=== PATIENT | male | born 1955 | race Caucasian/White ===

== ENCOUNTER 2017-05-07 21:15 | Inpatient (IN) ==
[2017-05-07 21:42] LABS: Basophils # 0.1 K/mcL (0.0-0.2); Eosinophils # 0.4 K/mcL (0.0-0.6); Eosinophils % 3.8 %; Hematocrit 46.8 % (37.5-50.1); Hemoglobin 15.1 g/dL (12.9-16.9); Immature Granulocytes % 0.4 % (0-4); Lymphocytes # 4.2 K/mcL (0.6-4.6); Lymphocytes % 37.3 %; Mean Corpuscular HGB Conc 32.3 g/dL (31.6-35.5); Mean Corpuscular Hemoglobin 26.9 pg (28.0-33.3); Mean Corpuscular Volume 83.3 fL (83.0-100.0); Mean Platelet Volume 10.5 fL (9.4-12.4); Monocytes # 0.8 K/mcL (0.0-1.3); Neutrophils # 5.8 K/mcL (1.6-8.9); Platelet Count 289 K/mcL (140-400); Red Blood Count 5.62 M/mcL (4.19-5.50); Red Cell Distribution Width 14.4 % (11.5-14.5); Segmented Neutrophils % 50.5 %
[2017-05-07 21:45] LABS: Bilirubin,Urine Negative (Negative); Blood,Urine Negative (Negative); Clarity,Urine Clear (Clear); Color,Urine Yellow (Yellow); Glucose,Urine (UA) 500 mg/dL (Normal); Ketones,Urine Negative (Negative); Leukocyte Esterase,Urine Small (Negative); Nitrite,Urine Negative (Negative); PH,Urine 5.5 pH Units (5.0-8.0); Protein,Urine Negative (Neg-Trace); Specific Gravity,Urine 1.024 (1.010-1.025); Urobilinogen,Urine Normal (Normal)
[2017-05-07 21:47] LABS: Bacteria,Urine None Seen per hpf (None-Few); Hyaline Casts,Urine None Seen per lpf (None-Few); RBC,Urine 0-3 per hpf (0-3); Squamous Epithelial Cell,Urine Many per lpf (None-Few); WBC,Urine 15-30 per hpf (0-3)
[2017-05-07 21:55] LABS: Alanine Aminotransferase 21 Units/L (0-55); Albumin 4.1 g/dL (3.5-5.0); Albumin/Globulin Ratio 1.2 (1.1-2.2); Alkaline Phosphatase 79 Units/L (38-126); Aspartate Amino Transferase 12 Units/L (5-34); BUN/Creatinine Ratio 17 (6-26); Bilirubin,Direct 0.1 mg/dL (0.0-0.5); Bilirubin,Indirect 0.2 mg/dL (0.0-1.2); Bilirubin,Total 0.3 mg/dL (0.2-1.2); Blood Urea Nitrogen 21 mg/dL (8-26); Calcium 10.2 mg/dL (8.6-10.8); Carbon Dioxide 21 mEq/L (19-29); Chloride 99 mEq/L (98-109); Globulin 3.3 g/dL (2.4-3.5); Glucose 162 mg/dL (70-99); Lipase 64 Units/L (8-78); Osmolality,Calculated 287 (280-300); Potassium 4.4 mEq/L (3.5-4.5); Sodium 135 mEq/L (136-145); Total Protein 7.4 g/dL (6.0-8.3); eGFR For African Americans > 60 (> 60); eGFR For Non-African Americans 58 (> 60)
[2017-05-07] MEDS ORDERED: 0.9 % Sodium Chloride 1,000 ML IVC ONE (22:17)
[2017-05-07] MEDS ORDERED: *HR* Morphine 2 MG/ML SYRINGE IVP ONE (22:17)
[2017-05-07] MEDS ORDERED: Ondansetron 4 MG/2 ML VIAL IVP ONE (22:17)
--- NOTE | 2017-05-07 22:20 | Emergency Department Note ---
Disposition Clinical Impression: Abdominal pain Disposition: Still a Patient Condition: Good Instructions: Abdominal Pain (ED) Referrals: NO,PCP [Primary Care Provider] - Forms: Work/School Release, ED Satisfaction Letter Abdominal Pain HPI - General Chief Complaint: ED Abdominal Pain Stated Complaint: Left abdominal/side pain Time Seen by Provider: 05/07/17 22:01 Source: patient, family Mode of arrival: ambulatory Limitations: no limitations Nursing Notes Reviewed: Yes Vital Signs Reviewed: Yes - History of Present Illness HPI Narrative: 8-year-old male presents with left upper quadrant abdominal pain. Patient states his symptoms started within the past 2-3 days and has progressively worsened. Patient states he has pain with movement and palpation to the left upper quadrant. He states his bowel movements have been normal and denies hematochezia, melena, or other diarrhea. Denies fever, chills, chest pain, palpitations, diaphoresis. He has some mild shortness of breath with exertion however this is fairly chronic for him, per the patient. Patient denies any history of colitis, diverticulitis or other history of bowel disorder. Pain Scale: 8 - Related Data Allergies Allergy/AdvReac Type Severity Reaction Status Date / Time No Known Allergies Allergy Verified 05/07/17 21:18 All systems ED: reviewed and negative except as stated. Constitutional: Denies: fever, weakness Cardiovascular: Denies: chest pain Respiratory: Reports: dyspnea. Denies: cough, wheezes Gastrointestinal: Reports: abdominal pain, nausea. Denies: vomiting, diarrhea Abdominal Pain PMH - Past Medical History Medical history: Reports: no medical history Male Surgical History: Reports: appendectomy, orthopedic, other Psychiatric history: Reports: anxiety, depression - Social History Smoking status: Current every day smoker Alcohol use: Reports: rarely Drug use: Reports: none Physical Exam General: Alert and in no acute distress Skin: Warm, dry, intact Head: Normocephalic and atraumatic Neck: Supple, trachea midline and no tenderness Cardiovascular: RRR, no murmur, normal perfusion Respiratory: CTAB, no wheezing, cough, or respiratory distress Musculoskeletal: Normal strength, no tenderness, swelling or deformity GI: Soft, mild tenderness to palpation of the left upper quadrant without evidence of rigidity, guarding, or rebound. Neuro: A&O to person, place, time and situation. No focal deficits noted on exam Psychiatric: cooperative and appropriate mood and affect. - General Limitations: no limitations General appearance: alert, in no apparent distress Course Vital Signs Temperature 98.0 F 05/07/17 21:18 Pulse Rate 106 05/07/17 21:18 Respiratory Rate 20 05/07/17 21:18 Blood Pressure 162/82 05/07/17 21:18 O2 Sat by Pulse Oximetry 94 05/07/17 21:18 Temperature 98.0 F 05/07/17 21:18 Pulse Rate 106 05/07/17 21:18 Respiratory Rate 20 05/07/17 21:18 Blood Pressure 162/82 05/07/17 21:18 O2 Sat by Pulse Oximetry 94 05/07/17 21:18 Oxygen Delivery Oxygen Delivery Room Air Abdominal Pain - MDM Narrative Medical decision making narrative: Patient will be signed out to the night physician pending CT of the abdomen for evaluation of possible colitis versus diverticulitis. - Medical Records Medical records reviewed: Yes I reviewed the patient's medical records. - Lab Data Lab results reviewed: Yes I reviewed the patient's lab results. Result diagrams: 05/07/17 21:32 05/07/17 21:32 Lab Results 05/07/17 05/07/17 05/07/17 Range/Units 21:32 21:32 21:32 WBC 11.4 H (4.3-11.1) K/mcL RBC 5.62 H (4.19-5.50) M/mcL Hgb 15.1 (12.9-16.9) g/dL Hct 46.8 (37.5-50.1) % MCV 83.3 (83.0-100.0) fL MCH 26.9 L (28.0-33.3) pg MCHC 32.3 (31.6-35.5) g/dL RDW 14.4 (11.5-14.5) % Plt Count 289 (140-400) K/mcL MPV 10.5 (9.4-12.4) fL Immature Gran % 0.4 (0-4) % Seg Neutrophils % 50.5 % Lymphocytes % 37.3 % Monocytes % 7.0 % Eosinophils % 3.8 % Basophils % 1.0 % Neutrophils # 5.8 (1.6-8.9) K/mcL Lymphocytes # 4.2 (0.6-4.6) K/mcL Monocytes # 0.8 (0.0-1.3) K/mcL Eosinophils # 0.4 (0.0-0.6) K/mcL Basophils # 0.1 (0.0-0.2) K/mcL Sodium 135 L (136-145) mEq/L Potassium 4.4 (3.5-4.5) mEq/L Chloride 99 (98-109) mEq/L Carbon Dioxide 21 (19-29) mEq/L BUN 21 (8-26) mg/dL Creatinine 1.27 H (0.72-1.25) mg/dL Est GFR ( Amer) > 60 (> 60) Est GFR (Non-Af Amer) 58 L (> 60) BUN/Creatinine Ratio 17 (6-26) Glucose 162 H (70-99) mg/dL Calculated Osmolality 287 (280-300) Calcium 10.2 (8.6-10.8) mg/dL Total Bilirubin 0.3 (0.2-1.2) mg/dL Direct Bilirubin 0.1 (0.0-0.5) mg/dL Indirect Bilirubin 0.2 (0.0-1.2) mg/dL AST 12 (5-34) Units/L ALT 21 (0-55) Units/L Alkaline Phosphatase 79 (38-126) Units/L Serum Total Protein 7.4 (6.0-8.3) g/dL Albumin 4.1 (3.5-5.0) g/dL Globulin 3.3 (2.4-3.5) g/dL Albumin/Globulin Ratio 1.2 (1.1-2.2) Lipase 64 (8-78) Units/L Urine Color Yellow (Yellow) Urine Clarity Clear (Clear) Urine pH 5.5 (5.0-8.0) pH Units Ur Specific [place] 1.024 (1.010-1.025) Urine Protein Negative (Neg-Trace) mg/dL Urine Glucose (UA) 500 H (Normal) mg/dL Urine Ketones Negative (Negative) mg/dL Urine Blood Negative (Negative) Urine Nitrite Negative (Negative) Urine Bilirubin Negative (Negative) Urine Urobilinogen Normal (Normal) mg/dL Ur Leukocyte Esterase Small H (Negative) Urine Microscopic RBC 0-3 (0-3) per hpf Urine Microscopic WBC 15-30 H (0-3) per hpf Ur Squamous Epith Cells Many H (None-Few) per lpf Urine Bacteria None Seen (None-Few) per hpf Hyaline Casts None Seen (None-Few) per lpf Ur Culture Indicated? YES A (NO)
[2017-05-08] MEDS ORDERED: Ondansetron 4 MG/2 ML VIAL IVP PRN ×2 (01:09→06:09)
[2017-05-08] MEDS: *HR* HYDROmorphone (PF) 1 MG/ML SYRINGE IVP ONE ×3 (01:18→03:48)
[2017-05-08] MEDS ORDERED: Ondansetron 4 MG/2 ML VIAL IVP ONE (03:31)
[2017-05-08] MEDS ORDERED: *HR* HYDROmorphone 2 MG/ML SYRINGE IVP ONE (03:33)
[2017-05-08] MEDS ORDERED: *HR* HYDROmorphone (PF) 1 MG/ML SYRINGE ONE (03:41)
[2017-05-08] MEDS ORDERED: Ondansetron 4 MG/2 ML VIAL ONE (03:41)
[2017-05-08] MEDS ORDERED: Naloxone 0.4 MG/ML INJ IVP PRN (04:55)
[2017-05-08] MEDS ORDERED: *HR* Morphine 2 MG/ML SYRINGE IVP PRN (04:55)
[2017-05-08] MEDS ORDERED: 0.9 % Sodium Chloride 1,000 ML IVC SCH (05:00)
--- NOTE | 2017-05-08 05:03 | Internal Med History&Physical ---
Date of Encounter: 05/08/17 Time of Encounter: 04:58 Assessment and Plan (1) Abdominal pain Current visit: Yes Status: Acute left sided abdominal pain. no signs of surgical abdomen, CT abd shows mild stranding ?acute pancreatitis however, lipase is normal. will treat conservatively with clear liquid diet, aalgesics and IVF. repeat lipase. CT also shows ?prostatic fluid, unlikley abscess, he denies any fever, burning micturition or difficulty passing urine. Qualifiers: Abdominal location: left upper quadrant Qualified Code(s): R10.12 - Left upper quadrant pain (2) HTN (hypertension) Current visit: Yes Status: Acute continue home meds Qualifiers: Hypertension type: essential hypertension Qualified Code(s): I10 - Essential (primary) hypertension (3) Unilateral AKA Current visit: Yes Status: Acute Qualifiers: Laterality: left Qualified Code(s): Z89.612 - Acquired absence of left leg above knee Internal Medicine - H&P: HPI Chief complaint: left upper abdominal pain' Admitted From: Home Plans for Post Hospital Care: Home History of present illness: Mr. River is a 62 year old male with PMH of HTN, left leg AKA presents with left upper quadrant abdominal pain. Patient states his symptoms started within the past 2-3 days and has progressively worsened. Patient states he has pain with movement and palpation to the left upper quadrant. He states his bowel movements have been normal and denies hematochezia, melena, or other diarrhea. HE Denies fever, chills, chest pain, palpitations, diaphoresis. H Patient denies any history of colitis, diverticulitis or other history of bowel disorder.HE denies any difficulty in passing urine. He is non alcoholic and does not smoke. he denies any intake of NSAIDS. he received morphine and dialudid at ED wi=hich he says has eased his pain. Past Med Surg Social Fam HX - Past Medical History Medical history: no medical history Psychiatric history: anxiety, depression - Social History Smoking Status: Current every day smoker Packs per day: 2 Smokeless Tobacco Status: No Alcohol use: rarely Drug use: none - Family History Son Name: Christian River Age: 29 Family Member Ethnicity: Non- Living Status: Still Living Hx Family Cardiac Disorders: No Hx Family Respiratory Disorders: No Hx Family Cancer: No Hx Family GI Disorders: No Hx Family Genitourinary Disorders: No Hx Family Endocrine Disorder: No Hx Family Musculoskeletal Disorders: No Hx Family Neuromuscular Disorders: No Hx Family Neurologic Disorders: No Hx Family HEENT Disorders: No Hx Family Autoimmune Disorders: No Hx Family Reproductive Disorders: No Hx Family Psychosocial Disorders: No Hx Family Medical Disorders: No Internal Medicine - H&P: Meds Allergies No Known Allergies Allergy (Verified 05/07/17 21:18) All Systems PM: A 10-system review of systems was performed and is negative for pertinent findings except as documented above in the HPI. - Constitutional Constitutional: as per HPI - Breasts Breasts: as per HPI - Cardiovascular Cardiovascular ROS IM: as per HPI - Respiratory Respiratory: as per HPI - Gastrointestinal Gastrointestinal: as per HPI - Genitourinary Genitourinary ROS male: as per HPI - Musculoskeletal Musculoskeletal ROS IM: as per HPI - Constitutional Vitals: Temp Pulse Resp BP Pulse Ox 97.7 F 79 12 119/67 94 05/08/17 04:27 05/08/17 04:27 05/08/17 04:27 05/08/17 04:27 05/08/17 04:31 General appearance: Present: A&O X 3, no acute distress Exam: neck- supple chest- b/l clear, no added sounds cvs-s1 and s2, no mr//g abd-soft, mild tenderess of the left quad and epigastriu, bs are present ext- no edema on the right leg, left leg AKA. neuro- no focal defecits Internal Med - H&P Results - Labs CBC & Chem 7: 05/07/17 21:32 05/07/17 21:32 - Attending Attestation I examined this patient and my medical decision-making was reviewed with the Resident Physician. I agree with the documented findings, disposition and treatment plan as described.
[2017-05-08] MEDS ORDERED: *HR* HYDROmorphone (PF) 1 MG/ML SYRINGE IVP ONE (06:09)
--- NOTE | 2017-05-08 08:40 | Emergency Department Note ---
Disposition Clinical Impression: Abdominal pain Qualifiers: Abdominal location: left upper quadrant Qualified Code(s): R10.12 - Left upper quadrant pain Pancreatitis Qualifiers: Chronicity: acute Pancreatitis type: unspecified pancreatitis type Acute pancreatitis complication: no infection or necrosis Qualified Code(s): K85.90 - Acute pancreatitis without necrosis or infection, unspecified Disposition: Admitted As Inpatient Condition: Fair Abdominal Pain HPI - General Chief Complaint: ED Abdominal Pain Stated Complaint: Left abdominal/side pain Time Seen by Provider: 05/07/17 22:01 Source: patient, family Mode of arrival: ambulatory Nursing Notes Reviewed: Yes Vital Signs Reviewed: Yes - History of Present Illness Pain Scale: 8 - Related Data Home Medications Medication Instructions Recorded Confirmed Gabapentin [Neurontin] 300 mg PO TID 05/08/17 05/08/17 HydrOXYzine Pamoate [Vistaril] 50 mg PO HS PRN 05/08/17 05/08/17 Meloxicam [Mobic] 15 mg PO DAILY 05/08/17 05/08/17 Oxycodone HCl/Acetaminophen 1 tab PO Q8H PRN 05/08/17 05/08/17 [Percocet 7.5-325 mg Tablet] Sertraline [Zoloft] 200 mg PO DAILY 05/08/17 05/08/17 Tizanidine HCl 4 mg PO BID PRN 05/08/17 05/08/17 Allergies Allergy/AdvReac Type Severity Reaction Status Date / Time No Known Allergies Allergy Verified 05/08/17 10:52 Constitutional: Denies: fever, weakness Cardiovascular: Denies: chest pain Respiratory: Reports: dyspnea. Denies: cough, wheezes Gastrointestinal: Reports: abdominal pain, nausea. Denies: vomiting, diarrhea Abdominal Pain PMH - Past Medical History Medical history: Reports: no medical history Male Surgical History: Reports: appendectomy, orthopedic, other Psychiatric history: Reports: anxiety, depression - Social History Smoking status: Current every day smoker Alcohol use: Reports: rarely Drug use: Reports: none Physical Exam - General Limitations: no limitations General appearance: alert, in no apparent distress Course Course Narrative: This patient was signed out to me at shift change from Dr. Prince. He presented with some left upper quadrant and left flank pain for 3 days. He has had some nausea and vomiting. No diarrhea. No melena, hematemesis, or hematochezia. No fever. No urinary symptoms. At shift change patient is awaiting a CT scan of the abdomen and pelvis. CT returned and showed a fluid collection within the prostate, cannot rule out abscess. Patient has no lower abdominal pain or rectal pain or urinary symptoms. The CT also showed some. Pancreatic fat stranding consistent with mild pancreatitis. The hospitalist, Dr. Hurd, was consulted and accepted admission of the patient for pancreatitis. Vital Signs Temperature 98.0 F 05/07/17 21:18 Pulse Rate 106 05/07/17 21:18 Respiratory Rate 20 05/07/17 21:18 Blood Pressure 162/82 05/07/17 21:18 O2 Sat by Pulse Oximetry 94 05/07/17 21:18 Temperature 98.1 F 05/08/17 19:06 Pulse Rate 77 05/08/17 19:06 Respiratory Rate 17 05/08/17 19:06 Blood Pressure 98/63 05/08/17 19:06 O2 Sat by Pulse Oximetry 92 05/08/17 19:06 Oxygen Delivery Oxygen Delivery Nasal Cannula Abdominal Pain - Medical Records Medical records reviewed: Yes I reviewed the patient's medical records. - Lab Data Lab results reviewed: Yes I reviewed the patient's lab results. Result diagrams: 05/07/17 21:32 05/07/17 21:32 Lab Results 05/07/17 05/07/17 05/07/17 Range/Units 21:32 21:32 21:32 WBC 11.4 H (4.3-11.1) K/mcL RBC 5.62 H (4.19-5.50) M/mcL Hgb 15.1 (12.9-16.9) g/dL Hct 46.8 (37.5-50.1) % MCV 83.3 (83.0-100.0) fL MCH 26.9 L (28.0-33.3) pg MCHC 32.3 (31.6-35.5) g/dL RDW 14.4 (11.5-14.5) % Plt Count 289 (140-400) K/mcL MPV 10.5 (9.4-12.4) fL Immature Gran % 0.4 (0-4) % Seg Neutrophils % 50.5 % Lymphocytes % 37.3 % Monocytes % 7.0 % Eosinophils % 3.8 % Basophils % 1.0 % Neutrophils # 5.8 (1.6-8.9) K/mcL Lymphocytes # 4.2 (0.6-4.6) K/mcL Monocytes # 0.8 (0.0-1.3) K/mcL Eosinophils # 0.4 (0.0-0.6) K/mcL Basophils # 0.1 (0.0-0.2) K/mcL Sodium 135 L (136-145) mEq/L Potassium 4.4 (3.5-4.5) mEq/L Chloride 99 (98-109) mEq/L Carbon Dioxide 21 (19-29) mEq/L BUN 21 (8-26) mg/dL Creatinine 1.27 H (0.72-1.25) mg/dL Est GFR ( Amer) > 60 (> 60) Est GFR (Non-Af Amer) 58 L (> 60) BUN/Creatinine Ratio 17 (6-26) Glucose 162 H (70-99) mg/dL Calculated Osmolality 287 (280-300) Calcium 10.2 (8.6-10.8) mg/dL Total Bilirubin 0.3 (0.2-1.2) mg/dL Direct Bilirubin 0.1 (0.0-0.5) mg/dL Indirect Bilirubin 0.2 (0.0-1.2) mg/dL AST 12 (5-34) Units/L ALT 21 (0-55) Units/L Alkaline Phosphatase 79 (38-126) Units/L Troponin I (0-0.03) ng/mL Serum Total Protein 7.4 (6.0-8.3) g/dL Albumin 4.1 (3.5-5.0) g/dL Globulin 3.3 (2.4-3.5) g/dL Albumin/Globulin Ratio 1.2 (1.1-2.2) Lipase 64 (8-78) Units/L Urine Color Yellow (Yellow) Urine Clarity Clear (Clear) Urine pH 5.5 (5.0-8.0) pH Units Ur Specific [place] 1.024 (1.010-1.025) Urine Protein Negative (Neg-Trace) mg/dL Urine Glucose (UA) 500 H (Normal) mg/dL Urine Ketones Negative (Negative) mg/dL Urine Blood Negative (Negative) Urine Nitrite Negative (Negative) Urine Bilirubin Negative (Negative) Urine Urobilinogen Normal (Normal) mg/dL Ur Leukocyte Esterase Small H (Negative) Urine Microscopic RBC 0-3 (0-3) per hpf Urine Microscopic WBC 15-30 H (0-3) per hpf Ur Squamous Epith Cells Many H (None-Few) per lpf Urine Bacteria None Seen (None-Few) per hpf Hyaline Casts None Seen (None-Few) per lpf Ur Culture Indicated? YES A (NO) 05/07/17 Range/Units 23:13 WBC (4.3-11.1) K/mcL RBC (4.19-5.50) M/mcL Hgb (12.9-16.9) g/dL Hct (37.5-50.1) % MCV (83.0-100.0) fL MCH (28.0-33.3) pg MCHC (31.6-35.5) g/dL RDW (11.5-14.5) % Plt Count (140-400) K/mcL MPV (9.4-12.4) fL Immature Gran % (0-4) % Seg Neutrophils % % Lymphocytes % % Monocytes % % Eosinophils % % Basophils % % Neutrophils # (1.6-8.9) K/mcL Lymphocytes # (0.6-4.6) K/mcL Monocytes # (0.0-1.3) K/mcL Eosinophils # (0.0-0.6) K/mcL Basophils # (0.0-0.2) K/mcL Sodium (136-145) mEq/L Potassium (3.5-4.5) mEq/L Chloride (98-109) mEq/L Carbon Dioxide (19-29) mEq/L BUN (8-26) mg/dL Creatinine (0.72-1.25) mg/dL Est GFR ( Amer) (> 60) Est GFR (Non-Af Amer) (> 60) BUN/Creatinine Ratio (6-26) Glucose (70-99) mg/dL Calculated Osmolality (280-300) Calcium (8.6-10.8) mg/dL Total Bilirubin (0.2-1.2) mg/dL Direct Bilirubin (0.0-0.5) mg/dL Indirect Bilirubin (0.0-1.2) mg/dL AST (5-34) Units/L ALT (0-55) Units/L Alkaline Phosphatase (38-126) Units/L Troponin I 0.01 (0-0.03) ng/mL Serum Total Protein (6.0-8.3) g/dL Albumin (3.5-5.0) g/dL Globulin (2.4-3.5) g/dL Albumin/Globulin Ratio (1.1-2.2) Lipase (8-78) Units/L Urine Color (Yellow) Urine Clarity (Clear) Urine pH (5.0-8.0) pH Units Ur Specific [place] (1.010-1.025) Urine Protein (Neg-Trace) mg/dL Urine Glucose (UA) (Normal) mg/dL Urine Ketones (Negative) mg/dL Urine Blood (Negative) Urine Nitrite (Negative) Urine Bilirubin (Negative) Urine Urobilinogen (Normal) mg/dL Ur Leukocyte Esterase (Negative) Urine Microscopic RBC (0-3) per hpf Urine Microscopic WBC (0-3) per hpf Ur Squamous Epith Cells (None-Few) per lpf Urine Bacteria (None-Few) per hpf Hyaline Casts (None-Few) per lpf Ur Culture Indicated? (NO) - Radiology Data Radiology results reviewed: Yes I reviewed the patient's radiology results. Abdomen/Pelvis CT 05/07/17 22:16 IMPRESSION: 1. Curvilinear fluid attenuation area in the prostate suspicious for fluid collection. Abscess not excluded. 2. Slight haziness of the peripancreatic fat. Question mild pancreatitis. D/ / 05/07/2017 23:23:54 Delio Rubio MD / [facility] Interpreting Provider: Delio Rubio MD Chest X-Ray 05/07/17 22:16 IMPRESSION: Negative portable chest. D/ / Jorge A Miranda MD / Jorge A Miranda MD Interpreting Provider: Jorge A Miranda MD
--- NOTE | 2017-05-08 10:50 | Internal Med Progress Note ---
Date of Encounter: 05/08/17 Time of Encounter: 10:47 - Assessment and plan (1) Acute pancreatitis Current Visit: Yes Status: Acute Assessment and plan: Continue clear liquids Morphine as needed, IV fluids Order abdominal ultrasound, the patient does not drink alcohol Order lipid panel Qualifiers: Pancreatitis type: idiopathic Acute pancreatitis complication: no infection or necrosis Qualified Code(s): K85.00 - Idiopathic acute pancreatitis without necrosis or infection (2) Chronic pain Current Visit: Yes Status: Acute Assessment and plan: Continue gabapentin Qualifiers: Chronic pain type: chronic pain syndrome Qualified Code(s): G89.4 - Chronic pain syndrome (3) Prostate abscess Current Visit: Yes Status: Acute Assessment and plan: CT scan of the abdomen shows curvilinear fluid attenuation area on the prostate suspicious for fluid collection, abscess is not excluded although the patient is asymptomatic. There is a slight haziness in the peripancreatic fat question mild pancreatitis Consider antibiotics and urology consult if he becomes symptomatic (4) Abdominal pain Current Visit: Yes Status: Acute Qualifiers: Abdominal location: left upper quadrant Qualified Code(s): R10.12 - Left upper quadrant pain (5) HTN (hypertension) Current Visit: Yes Status: Acute Assessment and plan: Stable Qualifiers: Hypertension type: essential hypertension Qualified Code(s): I10 - Essential (primary) hypertension (6) Unilateral AKA Current Visit: Yes Status: Acute Qualifiers: Laterality: left Qualified Code(s): Z89.612 - Acquired absence of left leg above knee - Subjective Interval history: Complaining of left upper quadrant pain, mild nausea, no diarrhea, no fevers. No chest pain or shortness of breath. No headaches - Constitutional Vitals: Temp Pulse Resp BP Pulse Ox 97.7 F 77 14 119/67 94 05/08/17 05:28 05/08/17 05:28 05/08/17 05:28 05/08/17 05:28 05/08/17 05:28 General appearance: Present: A&O X 3, morbidly obese, no acute distress - Head Head exam: Present: atraumatic, normocephalic - Eye Eye exam: Present: PERRL, conjuntiva pink, sclera anicteric Pupils: Present: PERRL - Neck Neck exam general surgery: Present: supple, trachea midline. Absent: lymphadenopathy - Respiratory Respiratory exam: Present: decreased breath sounds, CTAB. Absent: accessory muscle use, rales, rhonchi, wheezes - Cardiovascular Cardiovascular exam: Present: RRR, +S1, +S2. Absent: diastolic murmur, gallop, rubs, systolic murmur - GI/Abdominal GI/Abdominal exam: Present: distended, normal bowel sounds, soft, tenderness ( Epigastric and left upper quadrant tenderness), no peritoneal signs - Extremities Exam Extremities exam: Present: warm, radial pulses palpable and symetrical. Absent : calf tenderness, cyanotic, pedal edema - Neurological Exam Neurological exam: Present: CN II-XII intact, oriented X3, no focal deficits. Absent: pronater drift, facial droop, speech deficit Additional comments: Left [id number] amputation - Skin Skin exam: Present: dry, intact Internal Medicine: Result - Labs CBC & Chem 7: 05/07/17 21:32 05/07/17 21:32 Consult Discharge Plan - Plan Referrals: NO,PCP [Primary Care Provider] -
[2017-05-08] MEDS: *HR* Morphine 2 MG/ML SYRINGE IVP PRN ×4 (10:52→21:59)
[2017-05-08] MEDS: 0.9 % Sodium Chloride 1,000 ML IVC SCH ×2 (13:15→20:00)
[2017-05-08] MEDS: Nicotine 21 MG PATCH.TD24 TD SCH (16:40)
[2017-05-08] MEDS: Ondansetron 4 MG/2 ML VIAL IVP PRN (16:41)
[2017-05-08] MEDS: Gabapentin 300 MG CAPSULE PO SCH (19:58)
[2017-05-08] MEDS: hydrOXYzine pamoate 25 MG CAPSULE PO SCH (19:59)
[2017-05-09] MEDS: *HR* Morphine 2 MG/ML SYRINGE IVP PRN ×2 (02:06→06:39)
[2017-05-09] MEDS: 0.9 % Sodium Chloride 1,000 ML IVC SCH ×3 (02:53→18:04)
[2017-05-09 04:31] LABS: Basophils # 0.1 K/mcL (0.0-0.2); Eosinophils # 0.3 K/mcL (0.0-0.6); Eosinophils % 5.1 %; Hematocrit 40.8 % (37.5-50.1); Immature Granulocytes % 0.5 % (0-4); Lymphocytes # 2.4 K/mcL (0.6-4.6); Mean Corpuscular HGB Conc 31.1 g/dL (31.6-35.5); Mean Corpuscular Hemoglobin 26.6 pg (28.0-33.3); Mean Corpuscular Volume 85.4 fL (83.0-100.0); Mean Platelet Volume 10.4 fL (9.4-12.4); Monocytes # 0.3 K/mcL (0.0-1.3); Monocytes % 5.6 %; Neutrophils # 2.9 K/mcL (1.6-8.9); Platelet Count 184 K/mcL (140-400); Red Blood Count 4.78 M/mcL (4.19-5.50); Red Cell Distribution Width 14.4 % (11.5-14.5); Segmented Neutrophils % 47.8 %
[2017-05-09 04:36] LABS: Hemoglobin 12.7 g/dL (12.9-16.9)
[2017-05-09 04:45] LABS: BUN/Creatinine Ratio 13 (6-26); Blood Urea Nitrogen 12 mg/dL (8-26); Carbon Dioxide 26 mEq/L (19-29); Chloride 107 mEq/L (98-109); Cholesterol 216 mg/dL (< 200); Glucose 147 mg/dL (70-99); HDL Cholesterol 27 mg/dL (40-59); LDL Cholesterol,Calculated 134 mg/dL (0-99); Osmolality,Calculated 290 (280-300); Potassium 4.5 mEq/L (3.5-4.5); Sodium 139 mEq/L (136-145); Triglycerides 276 mg/dL (< 150); eGFR For African Americans > 60 (> 60); eGFR For Non-African Americans > 60 (> 60)
[2017-05-09 04:48] LABS: Calcium 8.6 mg/dL (8.6-10.8)
[2017-05-09] MEDS: Nicotine 21 MG PATCH.TD24 TD SCH (08:51)
[2017-05-09] MEDS ORDERED: *HR* HYDROmorphone (PF) 1 MG/ML SYRINGE IVP PRN (10:12)
--- NOTE | 2017-05-09 10:17 | Internal Med Progress Note ---
Date of Encounter: 05/09/17 Time of Encounter: 10:17 - Assessment and plan (1) Acute pancreatitis Current Visit: Yes Status: Acute Assessment and plan: Advanced to full liquids Dilaudid as needed, IV fluids Abdominal ultrasound report pending, the patient does not drink alcohol Lipase was 169 Qualifiers: Pancreatitis type: idiopathic Acute pancreatitis complication: no infection or necrosis Qualified Code(s): K85.00 - Idiopathic acute pancreatitis without necrosis or infection (2) Acute renal failure Current Visit: Yes Status: Acute Assessment and plan: Secondary to dehydration Creatinine has improved from 1.27 down to 0.96 Continue IV fluids Qualifiers: Acute renal failure type: unspecified Qualified Code(s): N17.9 - Acute kidney failure, unspecified (3) Chronic pain Current Visit: Yes Status: Acute Assessment and plan: Continue gabapentin Qualifiers: Chronic pain type: chronic pain syndrome Qualified Code(s): G89.4 - Chronic pain syndrome (4) Prostate abscess Current Visit: Yes Status: Acute Assessment and plan: CT scan of the abdomen shows curvilinear fluid attenuation area on the prostate suspicious for fluid collection, abscess is not excluded although the patient is asymptomatic. There is a slight haziness in the peripancreatic fat question mild pancreatitis Consider antibiotics and urology consult if he becomes symptomatic (5) Abdominal pain Current Visit: Yes Status: Acute Qualifiers: Abdominal location: left upper quadrant Qualified Code(s): R10.12 - Left upper quadrant pain (6) HTN (hypertension) Current Visit: Yes Status: Acute Assessment and plan: Stable Qualifiers: Hypertension type: essential hypertension Qualified Code(s): I10 - Essential (primary) hypertension (7) Unilateral AKA Current Visit: Yes Status: Acute Qualifiers: Laterality: left Qualified Code(s): Z89.612 - Acquired absence of left leg above knee - Subjective Interval history: Complaining of left upper quadrant and epigastric pain 9 out of 10 in intensity , mild nausea, no diarrhea, no fevers. No chest pain or shortness of breath. No headaches - Constitutional Vitals: Temp Pulse Resp BP Pulse Ox 98.2 F 68 17 113/73 95 05/09/17 06:54 05/09/17 06:54 05/09/17 06:54 05/09/17 06:54 05/09/17 08:21 General appearance: Present: A&O X 3, morbidly obese, no acute distress - Head Head exam: Present: atraumatic, normocephalic - Eye Eye exam: Present: PERRL, conjuntiva pink, sclera anicteric Pupils: Present: PERRL - Neck Neck exam general surgery: Present: supple, trachea midline. Absent: lymphadenopathy - Respiratory Respiratory exam: Present: CTAB. Absent: accessory muscle use, rales, rhonchi, wheezes - Cardiovascular Cardiovascular exam: Present: RRR, +S1, +S2. Absent: diastolic murmur, gallop, rubs, systolic murmur - GI/Abdominal GI/Abdominal exam: Present: normal bowel sounds, soft, tenderness (Epigastric and left upper quadrant tenderness), no peritoneal signs - Extremities Exam Extremities exam: Present: warm, radial pulses palpable and symetrical. Absent : calf tenderness, cyanotic, pedal edema Additional comments: Left [id number]-[id number]-ozft amputation - Neurological Exam Neurological exam: Present: CN II-XII intact, oriented X3, no focal deficits. Absent: pronater drift, facial droop, speech deficit - Skin Skin exam: Present: dry, intact Internal Medicine: Result - Labs CBC & Chem 7: 05/09/17 03:51 05/09/17 03:51 Labs: Short CBC 05/09/17 Range/Units 03:51 WBC 6.1 (4.3-11.1) K/mcL Hgb 12.7 L D (12.9-16.9) g/dL Hct 40.8 (37.5-50.1) % Plt Count 184 (140-400) K/mcL Neutrophils # 2.9 (1.6-8.9) K/mcL BMP 05/09/17 03:51 Sodium 139 Potassium 4.5 Chloride 107 Carbon Dioxide 26 BUN 12 Creatinine 0.96 Glucose 147 H Calcium 8.6 D - Impressions Impressions Abdomen Ultrasound 05/09/17 09:00 IMPRESSION: Cholelithiasis without evidence of acute cholecystitis. Incidentally noted left renal cyst. D/ / Jose Rojas MD / Jose Rojas MD Interpreting Provider: Jose Rojas MD Consult Discharge Plan - Plan Referrals: NO,PCP [Primary Care Provider] -
[2017-05-09] MEDS: Gabapentin 300 MG CAPSULE PO SCH ×2 (10:20→20:35)
[2017-05-09] MEDS: *HR* HYDROmorphone (PF) 1 MG/ML SYRINGE IVP PRN ×5 (10:53→20:36)
--- NOTE | 2017-05-09 12:08 | Electrocardiograph Report ---
[address] [place] [address] Test Date: 2017-05-07 Pat Name: Derick River Department: 103 Room: 3A33 Gender: M Desilverizer: MEG : 1955 Requested By: Lalo Prince Order Number: [id number] Reading MD: Terry Cowart MD Measurements Intervals Adrian Rate: 89 P: 43 VA: 198 QRS: -49 QRSD: 113 T: 70 QT: 376 QTc: 423 Interpretive Statements SINUS RHYTHM LEFT ANTERIOR FASCICULAR BLOCK PROBABLE LATERAL MYOCARDIAL INFARCTION, OF INDETERMINATE AGE Electronically Signed On 05-09-2017 12:07:12 EDT by Terry Cowart MD
[2017-05-09] MEDS: *HR* Heparin 5,000 UNIT/ML VIAL SQ SCH (18:04)
[2017-05-09] MEDS: hydrOXYzine pamoate 25 MG CAPSULE PO SCH (20:35)
[2017-05-09] MEDS: *HR* OxyCODONE/APAP 5/325 TABLET PO PRN (23:23)
[2017-05-10] MEDS: 0.9 % Sodium Chloride 1,000 ML IVC SCH ×5 (00:34→23:08)
[2017-05-10] MEDS: *HR* HYDROmorphone (PF) 1 MG/ML SYRINGE IVP PRN ×9 (02:56→23:07)
[2017-05-10] MEDS: *HR* Heparin 5,000 UNIT/ML VIAL SQ SCH ×2 (05:54→17:10)
[2017-05-10] MEDS: Gabapentin 300 MG CAPSULE PO SCH ×2 (08:10→19:52)
[2017-05-10] MEDS: Nicotine 21 MG PATCH.TD24 TD SCH (08:10)
--- NOTE | 2017-05-10 09:05 | Internal Med Progress Note ---
Date of Encounter: 05/10/17 Time of Encounter: 09:03 - Assessment and plan (1) Acute pancreatitis Current Visit: Yes Status: Acute Assessment and plan: Dilaudid as needed, IV fluids Abdominal ultrasound showed cholelithiasis without cholecystitis and an incidental left renal cyst. The patient requested to be seen by the surgical service to consider a cholecystectomy during this hospitalization the patient does not drink alcohol Lipase was 169 May advance diet if surgery scheduled for today Qualifiers: Pancreatitis type: idiopathic Acute pancreatitis complication: no infection or necrosis Qualified Code(s): K85.00 - Idiopathic acute pancreatitis without necrosis or infection (2) Acute renal failure Current Visit: Yes Status: Acute Assessment and plan: Secondary to dehydration Creatinine has improved from 1.27 down to 0.96 Continue IV fluids Qualifiers: Acute renal failure type: unspecified Qualified Code(s): N17.9 - Acute kidney failure, unspecified (3) Chronic pain Current Visit: Yes Status: Acute Assessment and plan: Continue gabapentin Qualifiers: Chronic pain type: chronic pain syndrome Qualified Code(s): G89.4 - Chronic pain syndrome (4) Prostate abscess Current Visit: Yes Status: Acute Assessment and plan: CT scan of the abdomen shows curvilinear fluid attenuation area on the prostate suspicious for fluid collection, abscess is not excluded although the patient is asymptomatic. There is a slight haziness in the peripancreatic fat question mild pancreatitis Consider antibiotics and urology consult if he becomes symptomatic (5) Abdominal pain Current Visit: Yes Status: Acute Qualifiers: Abdominal location: left upper quadrant Qualified Code(s): R10.12 - Left upper quadrant pain (6) HTN (hypertension) Current Visit: Yes Status: Acute Assessment and plan: Stable Qualifiers: Hypertension type: essential hypertension Qualified Code(s): I10 - Essential (primary) hypertension (7) Unilateral AKA Current Visit: Yes Status: Acute Qualifiers: Laterality: left Qualified Code(s): Z89.612 - Acquired absence of left leg above knee - Subjective Interval history: Still complaining of left upper quadrant and epigastric pain 7 out of 10 in intensity, mild nausea, no diarrhea, no fevers. No chest pain or shortness of breath. No headaches - Constitutional Vitals: Temp Pulse Resp BP Pulse Ox 97.7 F 73 18 125/70 92 05/10/17 07:52 05/10/17 07:52 05/10/17 07:52 07/11/17 07:52 05/10/17 07:52 General appearance: Present: A&O X 3, morbidly obese, no acute distress Exam: - Head Head exam: Present: atraumatic, normocephalic - Eye Eye exam: Present: PERRL, conjuntiva pink, sclera anicteric Pupils: Present: PERRL - Neck Neck exam general surgery: Present: supple, trachea midline. Absent: lymphadenopathy - Respiratory Respiratory exam: Present: CTAB. Absent: accessory muscle use, rales, rhonchi, wheezes - Cardiovascular Cardiovascular exam: Present: RRR, +S1, +S2. Absent: diastolic murmur, gallop, rubs, systolic murmur - GI/Abdominal GI/Abdominal exam: Present: normal bowel sounds, soft, tenderness (Epigastric and left upper quadrant tenderness), no peritoneal signs - Extremities Exam Extremities exam: Present: warm, radial pulses palpable and symetrical. Absent : calf tenderness, cyanotic, pedal edema Additional comments: Left hxxex-yje-dufr amputation - Neurological Exam Neurological exam: Present: CN II-XII intact, oriented X3, no focal deficits. Absent: pronater drift, facial droop, speech deficit - Skin Skin exam: Present: dry, intact Internal Medicine: Result - Labs CBC & Chem 7: 05/09/17 03:51 05/09/17 03:51 Consult Discharge Plan - Plan Referrals: Lalo Moss MD [Non-Partnered Physician] - 05/16/17 3:00 pm
--- NOTE | 2017-05-10 17:08 | General Surgery Consult Note ---
<Jackie Morris Sundeep - Last Filed: 05/10/17 17:04> Date of Encounter: 05/10/17 Time of Encounter: 16:45 Assessment and Plan (1) Gallstone pancreatitis Current Visit: Yes Status: Acute May have a low-fat diet today Nothing by mouth after midnight IV fluids Supportive care and pain control Risks, benefits, alternatives, expected outcomes were reviewed with the patient needs in agreement to proceed to the operating room with Dr. De La Paz for a laparoscopic cholecystectomy with possible cholangiogram and possible open procedure Repeat a.m. labs Incentive spirometer every 1 hour while awake (2) Obesity (BMI 30-39.9) Current Visit: Yes Status: Chronic (3) Tobacco abuse Current Visit: Yes Status: Acute Smoking cessation education Nicotine patch daily DuoNeb every 6 hours scheduled (4) DVT prophylaxis Current Visit: Yes Status: Acute Heparin 5000 units subcutaneous twice daily for DVT prophylaxis History of Present Illness Consult date: 05/10/17 Reason for consult: other (Gallstone pancreatitis) Requesting physician: Edilson Romero History of present illness: Mr. River is a 62 year old male who was admitted to the hospital with complaints of abdominal pain with associated nausea and vomiting. The patient reports a 6 day history of generalized abdominal pain. He states that the pain is now mostly located in his upper abdomen and left upper quadrant. He does have radiating pain into his back bilaterally. He has never experienced pain like this in the past. He states that the pain is constant. Denies any alleviating or aggravating factors. He does admit to nausea and vomiting which has improved with supportive measures. He does report increase in heartburn symptoms. Denies any changes in bowel habits. Denies any difficulty with urination. Denies any shortness of breath or chest pains. We have been asked to see and evaluate the patient for treatment and recommendations for his gallstone pancreatitis. Past Med Surg Social Fam HX - Past Medical History Source: patient, old records reviewed Medical history: no medical history, other (Obesity) Psychiatric history: anxiety, depression - Past Surgical History Surgical History: appendectomy, orthopedic, other (multiple surgeries to LLE for infected hardware of knee; Left AKA) - Social History Smoking Status: Current every day smoker Packs per day: 2 Smokeless Tobacco Status: No Alcohol use: rarely Drug use: none Occupational status: disabled Current living situation: Home, With Family Activity Level: Uses cane/walker - Family History Son Name: Christian River Age: 29 Family Member Ethnicity: Non- Living Status: Still Living Hx Family Cardiac Disorders: No Hx Family Respiratory Disorders: No Hx Family Cancer: No Hx Family GI Disorders: No Hx Family Genitourinary Disorders: No Hx Family Endocrine Disorder: No Hx Family Musculoskeletal Disorders: No Hx Family Neuromuscular Disorders: No Hx Family Neurologic Disorders: No Hx Family HEENT Disorders: No Hx Family Autoimmune Disorders: No Hx Family Reproductive Disorders: No Hx Family Psychosocial Disorders: No Hx Family Medical Disorders: No Medications and Allergies Gabapentin [Neurontin] 300 mg PO TID 05/08/17 [History] HydrOXYzine Pamoate [Vistaril] 50 mg PO HS PRN 05/08/17 [History] Meloxicam [Mobic] 15 mg PO DAILY 05/08/17 [History] Oxycodone HCl/Acetaminophen [Percocet 7.5-325 mg Tablet] 1 tab PO Q8H PRN [History] Sertraline [Zoloft] 200 mg PO DAILY 05/08/17 [History] Tizanidine HCl 4 mg PO BID PRN 05/08/17 [History] Allergies No Known Allergies Allergy (Verified 05/08/17 10:52) Review of Systems All systems PM: reviewed and no additional remarkable complaints except as stated (in the HPI) All systems PM: A 10-system review of systems was performed and is negative for pertinent findings except as documented above in the HPI. General Surgery Exam Initial Vital Signs Temp Pulse Resp BP Pulse Ox 98.0 F 106 20 162/82 94 05/07/17 21:18 05/07/17 21:18 05/07/17 21:18 05/07/17 21:18 05/07/17 21:18 - General physical appearance well developed, well nourished, no distress - Eyes normal ocular movement - ENT normal mucosa, atraumatic, normocephalic - Neck trachea midline - Respiratory normal respiratory effort, clear to auscultation - Cardiovascular Cardiovascular exam: Present: RRR - Abdomen Abdomen general surgery: Present: bowel sounds present, soft, tender Abdominal Tenderness: Present: epigastic - Integumentary Integumentary general surgery: Present: warm and dry - Neurologic Present: CN 2-12 grossly intact - Psychiatric Psychiatric general surgery: Present: appropriate, oriented to person, oriented to place, oriented to time, speech is normal, memory intact Exam Initial Vital Signs Temp Pulse Resp BP Pulse Ox 98.0 F 106 20 162/82 94 05/07/17 21:18 05/07/17 21:18 05/07/17 21:18 05/07/17 21:18 05/07/17 21:18 Results - Labs 05/09/17 03:51 05/09/17 03:51 Abnormal lab results Hgb 12.7 g/dL (12.9-16.9) L D 05/09/17 03:51 MCH 26.6 pg (28.0-33.3) L 05/09/17 03:51 MCHC 31.1 g/dL (31.6-35.5) L 05/09/17 03:51 Glucose 147 mg/dL (70-99) H 05/09/17 03:51 POC Glucose 128 (58-89) H 05/10/17 16:00 Triglycerides 276 mg/dL (< 150) H 05/09/17 03:51 Cholesterol 216 mg/dL (< 200) H 05/09/17 03:51 LDL Cholesterol, Calc 134 mg/dL (0-99) H 05/09/17 03:51 VLDL Cholesterol, Calc 55 mg/dL (< 31) H 05/09/17 03:51 HDL Cholesterol 27 mg/dL (40-59) L 05/09/17 03:51 Cholesterol/HDL Ratio 8.0 (0-4.9) H 05/09/17 03:51 Lipase 169 Units/L (8-78) H 05/08/17 05:23 Urine Glucose (UA) 500 mg/dL (Normal) H 05/07/17 21:32 Ur Leukocyte Esterase Small (Negative) H 05/07/17 21:32 Urine Microscopic WBC 15-30 per hpf (0-3) H 05/07/17 21:32 Ur Squamous Epith Cells Many per lpf (None-Few) H 05/07/17 21:32 Ur Culture Indicated? YES (NO) A 05/07/17 21:32 All other labs normal. - Imaging Additional studies: Abdomen/Pelvis CT 05/07/17 22:16 IMPRESSION: 1. Curvilinear fluid attenuation area in the prostate suspicious for fluid collection. Abscess not excluded. 2. Slight haziness of the peripancreatic fat. Question mild pancreatitis. D/ / 05/07/2017 23:23:54 Delio Rubio MD / gaurav Interpreting Provider: Delio Rubio MD Chest X-Ray 05/07/17 22:16 IMPRESSION: Negative portable chest. D/ / Jorge A Miranda MD / Jorge A Miranda MD Interpreting Provider: Jorge A Miranda MD Abdomen Ultrasound 05/09/17 09:00 IMPRESSION: Cholelithiasis without evidence of acute cholecystitis. Incidentally noted left renal cyst. D/ / 05/09/2017 10:29:54 Jose Rojas MD / parrish Interpreting Provider: Jose Rojas MD Consult Discharge Plan - Plan Referrals: Lalo kincaid MD [Non-Partnered Physician] - 05/16/17 3:00 pm - Attending Attestation I examined this patient and my medical decision-making was reviewed with the TOURIST CABIN KEEPER/PA/Advanced Practice Nurse/Resident Physician. I agree with the documented findings, disposition and treatment plan as described except to the extent set forth below. <Maci Palma - Last Filed: 05/10/17 23:41> Date of Encounter: 05/10/17 Assessment and Plan (1) Abdominal pain Current Visit: Yes Status: Acute prn pain medication Qualifiers: Abdominal location: left upper quadrant Qualified Code(s): R10.12 - Left upper quadrant pain (2) HTN (hypertension) Current Visit: Yes Status: Acute normotensive Qualifiers: Hypertension type: essential hypertension Qualified Code(s): I10 - Essential (primary) hypertension (3) Acute pancreatitis Current Visit: Yes Status: Acute discussed with patient US results and labs. Mild elevation in lipase, triglyceride somewhat elevated but only several 100s. US gallbladder with cholelithiasis, no signs of acute cholecystitis. Will plan laparoscopic cholecystectomy with cholangiograms, possible open, risks and benefits discussed and he wishes to proceed clears today, npo after breakfast (npo 9 am) Qualifiers: Pancreatitis type: biliary Acute pancreatitis complication: no infection or necrosis Qualified Code(s): K85.10 - Biliary acute pancreatitis without necrosis or infection History of Present Illness History of present illness: Patient had abdominal pain in epigastric and midabdomen area without radiation that was sharp and would come and go for 4 days. He had nausea with emesis in the beginning but only nausea now. Denies diarrhea. No previous episodes like this. Has GERD symptoms intermittently. He was admitted and US showed cholelithiasis without gallbladder wall thickening, pericholecystic fluid, or dilated cbd (3mm). He had a very mild elevation of his lipase, normal LFTS Past Med Surg Social Fam HX - Past Medical History Source: patient - Past Surgical History Surgical History: appendectomy, orthopedic, other Review of Systems All systems PM: reviewed and no additional remarkable complaints except as stated All systems PM: A 10-system review of systems was performed and is negative for pertinent findings except as documented above in the HPI. General Surgery Exam Initial Vital Signs Temp Pulse Resp BP Pulse Ox 98.0 F 106 20 162/82 94 05/07/17 21:18 05/07/17 21:18 05/07/17 21:18 05/07/17 21:18 05/07/17 21:18 - General physical appearance well nourished, no distress, no pain - Eyes PERRL, normal ocular movement - ENT normal mucosa, normocephalic - Neck trachea midline - Respiratory normal respiratory effort, clear to auscultation - Cardiovascular Cardiovascular exam: Present: RRR - Abdomen Abdomen general surgery: Present: bowel sounds present, soft, tender. Absent: guarding, rebound Abdominal Tenderness: Present: epigastic, RUQ - Integumentary Integumentary general surgery: Present: warm and dry, no abnormal pigmentation - Neurologic Present: CN 2-12 grossly intact - Musculoskeletal Present: normal gait, normal posture - Psychiatric Psychiatric general surgery: Present: A&Ox3, speech is normal Exam Initial Vital Signs Temp Pulse Resp BP Pulse Ox 98.0 F 106 20 162/82 94 05/07/17 21:18 05/07/17 21:18 05/07/17 21:18 05/07/17 21:18 05/07/17 21:18 Results - Labs 07/10/17 03:51 05/09/17 03:51 Abnormal lab results Hgb 12.7 g/dL (12.9-16.9) L D 05/09/17 03:51 MCH 26.6 pg (28.0-33.3) L 05/09/17 03:51 MCHC 31.1 g/dL (31.6-35.5) L 05/09/17 03:51 Glucose 147 mg/dL (70-99) H 05/09/17 03:51 POC Glucose 128 (58-89) H 05/10/17 16:00 Triglycerides 276 mg/dL (< 150) H 05/09/17 03:51 Cholesterol 216 mg/dL (< 200) H 05/09/17 03:51 LDL Cholesterol, Calc 134 mg/dL (0-99) H 05/09/17 03:51 VLDL Cholesterol, Calc 55 mg/dL (< 31) H 05/09/17 03:51 HDL Cholesterol 27 mg/dL (40-59) L 05/09/17 03:51 Cholesterol/HDL Ratio 8.0 (0-4.9) H 05/09/17 03:51 Lipase 169 Units/L (8-78) H 05/08/17 05:23 Urine Glucose (UA) 500 mg/dL (Normal) H 05/07/17 21:32 Ur Leukocyte Esterase Small (Negative) H 05/07/17 21:32 Urine Microscopic WBC 15-30 per hpf (0-3) H 05/07/17 21:32 Ur Squamous Epith Cells Many per lpf (None-Few) H 05/07/17 21:32 Ur Culture Indicated? YES (NO) A 05/07/17 21:32 All other labs normal. - Imaging US - abdomen: report reviewed - Attending Attestation I examined this patient and my medical decision-making was reviewed with the TOURIST CABIN KEEPER/PA/Advanced Practice Nurse/Resident Physician. I agree with the documented findings, disposition and treatment plan as described except to the extent set forth below.
--- NOTE | 2017-05-10 19:06 | Anesthesia Evaluation PreOp ---
Date of Encounter: 05/10/17 Time of Encounter: 19:03 - Past History Planned Operation: Lap sarika with cholangiogram Cardiac History: HTN Pulmonary History: Smoker, Pack/yr (2ppd) [employer] History: Other (anxiety, depression) Other Medical History: Denies Any Significant HX Anesthesia History: No Prior Anesthetic Complications, Past Anesthesia (appy, multiple surgeries of lle, l aka) Alcohol Use: rarely Drug use: none Medications and Allergies Gabapentin [Neurontin] 300 mg PO TID 05/08/17 [History] HydrOXYzine Pamoate [Vistaril] 50 mg PO HS PRN 05/08/17 [History] Meloxicam [Mobic] 15 mg PO DAILY 05/08/17 [History] Oxycodone HCl/Acetaminophen [Percocet 7.5-325 mg Tablet] 1 tab PO Q8H PRN [History] Sertraline [Zoloft] 200 mg PO DAILY 05/08/17 [History] Tizanidine HCl 4 mg PO BID PRN 05/08/17 [History] Allergies No Known Allergies Allergy (Verified 05/08/17 10:52) - Meds/Allergy Pre-op Review Medications Reviewed: Yes Allergies Reviewed: Yes Beta Blockers on Current Med List: No Anesthesia Results - Labs 05/09/17 03:51 05/09/17 03:51 - Imaging EKG: report reviewed (sr/lafb) Anesthesia Exam Vital Signs/O2 Sat/Glucose, Most Current Temp Pulse Resp BP Pulse Ox 05/10/17 19:08 97.7 F 76 18 148/78 92 Height: 1.89 Weight: 137 NPO (# of Hours): >8 - HEENT Pupil (Motor): Pupils equal, EOMI Mallampati: III Teeth: Edentulous Oral Opening: Greater than 3 - BLUEPRINT [employer]ER LOC: Oriented [employer]UEPRINT [employer] Motor: Normal RUE, Normal LUE, Normal RLE, Normal Face, Deficit LLE [employer] Sensory: Normal: RUE, LUE, RLE, Face, Deficit: LLE - Cardiac Rhythm: Regular Murmur: None - Pulmonary Breath Sounds: bilateral Clear Respiratory Effort: Symmetrical Anesthesia Assess/Plan ASA Score: 2 Modified Edna Scale for Level of Consciousness: Cooperative, oriented, and tranquil Anesthetic Plan: General Monitoring Plan: Standard Monitors Recovery Plan: PACU
[2017-05-10] MEDS: hydrOXYzine pamoate 25 MG CAPSULE PO SCH (19:52)
[2017-05-10] MEDS: Ipratropium/Albuterol Neb 3 ML IH SCH (21:25)
[2017-05-11] MEDS: *HR* OxyCODONE/APAP 5/325 TABLET PO PRN ×2 (00:10→22:56)
[2017-05-11] MEDS: Ipratropium/Albuterol Neb 3 ML IH SCH ×4 (04:16→22:39)
[2017-05-11] MEDS: *HR* HYDROmorphone (PF) 1 MG/ML SYRINGE IVP PRN ×6 (04:42→16:34)
[2017-05-11] MEDS: *HR* Heparin 5,000 UNIT/ML VIAL SQ SCH ×2 (04:43→17:20)
[2017-05-11] MEDS: 0.9 % Sodium Chloride 1,000 ML IVC SCH ×3 (04:44→22:56)
[2017-05-11 04:52] LABS: Basophils # 0.1 K/mcL (0.0-0.2); Basophils % 1.2 %; Eosinophils # 0.3 K/mcL (0.0-0.6); Eosinophils % 5.5 %; Hematocrit 38.2 % (37.5-50.1); Hemoglobin 12.4 g/dL (12.9-16.9); INR 1.1; Immature Granulocytes % 0.4 % (0-4); Lymphocytes # 1.9 K/mcL (0.6-4.6); Lymphocytes % 38.9 %; Mean Corpuscular HGB Conc 32.5 g/dL (31.6-35.5); Mean Corpuscular Hemoglobin 27.2 pg (28.0-33.3); Mean Corpuscular Volume 83.8 fL (83.0-100.0); Mean Platelet Volume 10.8 fL (9.4-12.4); Monocytes # 0.3 K/mcL (0.0-1.3); Monocytes % 6.3 %; Neutrophils # 2.3 K/mcL (1.6-8.9); Platelet Count 168 K/mcL (140-400); Prothrombin Time 11.7 Seconds (9.4-12.1); Red Blood Count 4.56 M/mcL (4.19-5.50); Red Cell Distribution Width 14.2 % (11.5-14.5); Segmented Neutrophils % 47.7 %
[2017-05-11 05:07] LABS: BUN/Creatinine Ratio 7 (6-26); Blood Urea Nitrogen 6 mg/dL (8-26); Calcium 9.1 mg/dL (8.6-10.8); Carbon Dioxide 28 mEq/L (19-29); Chloride 106 mEq/L (98-109); Glucose 146 mg/dL (70-99); Osmolality,Calculated 290 (280-300); Potassium 4.3 mEq/L (3.5-4.5); Sodium 140 mEq/L (136-145); eGFR For African Americans > 60 (> 60); eGFR For Non-African Americans > 60 (> 60)
[2017-05-11] MEDS: Nicotine 21 MG PATCH.TD24 TD SCH (08:07)
[2017-05-11] MEDS: Gabapentin 300 MG CAPSULE PO SCH (08:07)
--- NOTE | 2017-05-11 08:41 | Internal Med Progress Note ---
Date of Encounter: 05/11/17 Time of Encounter: 08:39 - Assessment and plan (1) Acute pancreatitis Current Visit: Yes Status: Acute Assessment and plan: Dilaudid as needed, IV fluids Abdominal ultrasound showed cholelithiasis without cholecystitis and an incidental left renal cyst. Surgical service consulted, will have cholecystectomy later this afternoon the patient does not drink alcohol Lipase was 169 NPO at 9 am Qualifiers: Pancreatitis type: biliary Acute pancreatitis complication: no infection or necrosis Qualified Code(s): K85.10 - Biliary acute pancreatitis without necrosis or infection (2) Acute renal failure Current Visit: Yes Status: Acute Assessment and plan: Secondary to dehydration Creatinine has improved from 1.27 down to 0.96 Continue IV fluids Qualifiers: Acute renal failure type: unspecified Qualified Code(s): N17.9 - Acute kidney failure, unspecified (3) Chronic pain Current Visit: Yes Status: Acute Assessment and plan: Continue gabapentin Qualifiers: Chronic pain type: chronic pain syndrome Qualified Code(s): G89.4 - Chronic pain syndrome (4) Prostate abscess Current Visit: Yes Status: Acute Assessment and plan: CT scan of the abdomen shows curvilinear fluid attenuation area on the prostate suspicious for fluid collection, abscess is not excluded although the patient is asymptomatic. There is a slight haziness in the peripancreatic fat question mild pancreatitis Consider antibiotics and urology consult if he becomes symptomatic (5) Abdominal pain Current Visit: Yes Status: Acute Qualifiers: Abdominal location: left upper quadrant Qualified Code(s): R10.12 - Left upper quadrant pain (6) HTN (hypertension) Current Visit: Yes Status: Acute Assessment and plan: Stable Qualifiers: Hypertension type: essential hypertension Qualified Code(s): I10 - Essential (primary) hypertension (7) Unilateral AKA Current Visit: Yes Status: Acute Qualifiers: Laterality: left Qualified Code(s): Z89.612 - Acquired absence of left leg above knee - Subjective Interval history: COmplains of left upper quadrant and epigastric pain 6 out of 10 in intensity, mild nausea, no diarrhea, no fevers. No chest pain or shortness of breath. No headaches - Constitutional Vitals: Temp Pulse Resp BP Pulse Ox 97.9 F 69 16 135/72 90 05/11/17 04:18 05/11/17 04:18 05/11/17 04:18 05/11/17 04:18 05/11/17 04:18 General appearance: Present: A&O X 3, morbidly obese, no acute distress Exam: Head Head exam: Present: atraumatic, normocephalic - Eye Eye exam: Present: PERRL, conjuntiva pink, sclera anicteric Pupils: Present: PERRL - Neck Neck exam general surgery: Present: supple, trachea midline. Absent: lymphadenopathy - Respiratory Respiratory exam: Present: CTAB. Absent: accessory muscle use, rales, rhonchi, wheezes - Cardiovascular Cardiovascular exam: Present: RRR, +S1, +S2. Absent: diastolic murmur, gallop, rubs, systolic murmur - GI/Abdominal GI/Abdominal exam: Present: normal bowel sounds, soft, tenderness (Epigastric and left upper quadrant tenderness), no peritoneal signs - Extremities Exam Extremities exam: Present: warm, radial pulses palpable and symetrical. Absent : calf tenderness, cyanotic, pedal edema Additional comments: Left [id number]-[id number]-[id number] amputation - Neurological Exam Neurological exam: Present: CN II-XII intact, oriented X3, no focal deficits. Absent: pronater drift, facial droop, speech deficit - Skin Skin exam: Present: dry, intact Internal Medicine: Result - Labs CBC & Chem 7: 05/11/17 04:02 05/11/17 04:02 Labs: Short CBC 05/11/17 Range/Units 04:02 WBC 4.9 (4.3-11.1) K/mcL Hgb 12.4 L (12.9-16.9) g/dL Hct 38.2 (37.5-50.1) % Plt Count 168 (140-400) K/mcL Neutrophils # 2.3 (1.6-8.9) K/mcL BMP 05/11/17 04:02 Sodium 140 Potassium 4.3 Chloride 106 Carbon Dioxide 28 BUN 6 L Creatinine 0.88 Glucose 146 H Calcium 9.1 - ABG Interpretation ABG results: PT/INR, D-dimer PT 11.7 Seconds (9.4-12.1) 05/11/17 04:02 Consult Discharge Plan - Plan Referrals: Ucci,Lalo Milner MD [Non-Partnered Physician] - 05/16/17 3:00 pm
[2017-05-11 09:59] LABS: Lipase 74 Units/L (8-78)
[2017-05-11] MEDS: Ondansetron 4 MG/2 ML VIAL IVP PRN (14:34)
[2017-05-11] MEDS ORDERED: Neostigmine Methylsulfate 3 MG/3 ML SYRINGE ONE ×2 (16:54→21:13)
[2017-05-11] MEDS ORDERED: *HR* Rocuronium Bromide 50 MG/5 ML VIAL ONE (16:54)
[2017-05-11] MEDS ORDERED: *HR* Propofol 200 MG/20 ML VIAL IVP ONE (16:54)
[2017-05-11] MEDS ORDERED: *HR* FentaNYL (PF) 100 MCG/2 ML VIAL ONE (16:54)
[2017-05-11] MEDS ORDERED: Lidocaine -MPF 2% 2 ML VIAL ONE (16:54)
[2017-05-11] MEDS ORDERED: *HR* Midazolam HCl 2 MG/2 ML VIAL ONE (16:54)
[2017-05-11] MEDS ORDERED: Lidocaine -MPF 4% 5 ML AMPUL ONE (16:54)
[2017-05-11] MEDS ORDERED: Dexamethasone 4 MG/ML VIAL ONE (16:54)
[2017-05-11] MEDS ORDERED: Ondansetron 4 MG/2 ML VIAL ONE (16:54)
[2017-05-11] MEDS ORDERED: *HR* Succinylcholine 200 MG/10 ML VIAL IVP ONE (16:54)
[2017-05-11] MEDS ORDERED: CefOXitin 2,000 MG VIAL IVPB ONE (20:01)
[2017-05-11] MEDS ORDERED: *HR* HYDROmorphone 2 MG/ML SYRINGE ONE (20:45)
[2017-05-11] MEDS ORDERED: *HR* HYDROmorphone (PF) 1 MG/ML SYRINGE IVP PRN (20:48)
[2017-05-11] MEDS ORDERED: *HR* Promethazine 25 MG/ML VIAL IVP PRN (20:48)
[2017-05-11] MEDS ORDERED: *HR* Labetalol 20 MG/4 ML SYRINGE IVP ONE (21:02)
--- NOTE | 2017-05-11 21:37 | Operative Note ---
Date of procedure: 05/11/17 Pre-op diagnosis: gallstone pancreatitis Post-op diagnosis: same Procedure: laparoscopic cholecystectomy Complications: none immediate Anesthesia: GETA, local Local Anesthetics: 0.5% Sensorcaine HCL SubQ (cc) (30) Surgeon: Maci Palma Airplane Pilot Commercial: Shirley Palomino Estimated blood loss (cc): 10 Specimen: gallbladder and contents Condition: stable Disposition: PACU Procedure in Detail: The patient was brought into the operating suite and placed supine on the operating table. Sign-in was performed and everyone was in agreement. Anesthesia was induced and patient was endotracheally intubated by anesthesia without incident and they also placed an OG tube. The abdomen was prepped and draped in the usual sterile fashion. A timeout was performed again everyone was in agreement. A supraumbilical incision was made through the skin into the subcutaneous tissue with an 11 blade. Towel clamps were placed on either side of the umbilicus for retraction. S retractors were used to dissect down to the anterior abdominal wall linea alba fascia. A Veress needle was placed through this incision and a water drop test confirmed placement and the abdomen was insufflated. The abdomen was entered with a 5 mm 0 degree laparoscope on a 5 mm X-filomena trocar. The area and entry was visualized was no bleeding and no apparent bowel injury. A 5 mm subxiphoid port was placed under direct visualization after first incising the skin with an 11 blade. A right upper quadrant subcostal position midclavicular line 5 mm port was placed under direct visualization after first incising skin with 11 blade. The laparoscope was placed in this and we exchanged the supraumbilical port for a 12 mm port under direct visualization. The last 5 mm port was placed in the right upper quadrant subcostal position anterior axillary line after first incising the skin with an 11 blade. The patient was placed in steep reverse Trendelenburg left side down position. The dome of the gallbladder was grasped and retracted cephalad. Omental adhesions to the body and infundibulum of the gallbladder were taken down bluntly with the [place]. The infundibulum was grasped and retracted laterally and when this was done a hole was torn in the gallbladder spilling bile. The gallbladder was regrasped occluding the hole. Using the [place] we dissected out the cystic duct and cystic artery. 25 mm hemoclips were placed proximally on the cystic artery and one distally and it was transected with curved scissors. There was a small gallstone at the cystic duct that was milked back to the gallbladder with the [place]. A 5 mm Hemoclip was placed proximally on the cystic duct. There was some oozing from the areaof the liver edge near the clipped cystic artery but it was not the cystic artery. A large piece of Surgicel was placed in this area for hemostasis. There was a short cystic duct and concern for being able to put clips distally and partially transected and there were to be retraction. 25 mm hemoclips were placed distally. The cystic duct was transected with curved scissors. Any bleeding points were stopped with the Bovie. The gallbladder was placed in a laparoscopic Endo Catch bag and removed via the supraumbilical incision site. The inferior edge of the liver was bluntly retracted cephalad and the cystic plate and right upper quadrant was copiously irrigated with sterile saline. There was no bleeding or apparent bile leak from the cystic plate and the clips on the cystic artery and duct were intact. All irrigation was suctioned free from the abdomen. The Surgicel was removed from the abdomen. All insufflation was suctioned free from the abdomen and the ports removed. The abdominal wall at the supraumbilical incision site was closed with a 0 Vicryl [id number] stitch. 30 mL of 0.5% Marcaine was injected subcutaneously at the 4 port sites. The skin at the three 5 mm port sites were closed with 4-0 Monocryl interrupted subcuticular stitches. The skin at the supraumbilical incision site was closed with a 4-0 Monocryl running subcuticular stitch. Steri-Strips were applied to all wounds. The patient was awoken in the operating suite having tolerated the procedure well and were taken to PACU in stable condition after all lap and ensuring counts were correct at the end of the case.
[2017-05-11] MEDS ORDERED: Acetaminophen IV 1,000 MG/100 ML INFUS..BTL ONE (22:03)
--- NOTE | 2017-05-11 22:25 | Anesthesia Evaluation Post Op ---
Date of Encounter: 05/11/17 Time of Encounter: 22:24 - Vital Signs Vital Signs: Vital Signs/O2 Sat/Glucose, Most Current Temp Pulse Resp BP Pulse Ox 05/11/17 22:14 63 16 103/74 94 05/11/17 22:04 98.3 F 63 16 136/72 93 05/11/17 21:54 63 16 136/72 92 05/11/17 21:43 67 18 120/75 95 05/11/17 21:34 97.7 F 65 12 164/89 92 - Lungs Lungs: Clear Ascult./Percussion - Airway Airway: Non-obstructed - Cardiovascular Regular Rate - Mental Status Mental Status: Asleep with brisk response to light stimulation - Pain Pain Scale: 2 - Nausea Vomiting Nausea Vomiting: Not Present - Hydration Hydration: NPO - Discharge PostOp Status: Transfer Patient to floor
[2017-05-11] MEDS ORDERED: Naloxone 0.4 MG/ML INJ IVP PRN (22:36)
[2017-05-12] MEDS: *HR* HYDROmorphone (PF) 1 MG/ML SYRINGE IVP PRN ×6 (01:30→21:27)
[2017-05-12] MEDS: *HR* OxyCODONE/APAP 5/325 TABLET PO PRN ×2 (03:05→17:13)
[2017-05-12] MEDS: Ipratropium/Albuterol Neb 3 ML IH SCH ×4 (04:20→22:34)
[2017-05-12] MEDS: *HR* Heparin 5,000 UNIT/ML VIAL SQ SCH ×2 (05:35→18:57)
[2017-05-12 07:01] LABS: Basophils % 0.4 %; Eosinophils % 0.1 %; Hematocrit 40.7 % (37.5-50.1); Hemoglobin 12.7 g/dL (12.9-16.9); Immature Granulocytes % 0.6 % (0-4); Lymphocytes # 0.7 K/mcL (0.6-4.6); Lymphocytes % 10.8 %; Mean Corpuscular HGB Conc 31.2 g/dL (31.6-35.5); Mean Corpuscular Hemoglobin 26.4 pg (28.0-33.3); Mean Corpuscular Volume 84.6 fL (83.0-100.0); Mean Platelet Volume 10.7 fL (9.4-12.4); Monocytes # 0.2 K/mcL (0.0-1.3); Monocytes % 3.5 %; Neutrophils # 5.8 K/mcL (1.6-8.9); Platelet Count 199 K/mcL (140-400); Red Blood Count 4.81 M/mcL (4.19-5.50); Red Cell Distribution Width 14.5 % (11.5-14.5); Segmented Neutrophils % 84.6 %
[2017-05-12 07:13] LABS: BUN/Creatinine Ratio 7 (6-26); Blood Urea Nitrogen 7 mg/dL (8-26); Calcium 9.1 mg/dL (8.6-10.8); Carbon Dioxide 28 mEq/L (19-29); Chloride 105 mEq/L (98-109); Glucose 201 mg/dL (70-99); Osmolality,Calculated 288 (280-300); Potassium 4.9 mEq/L (3.5-4.5); Sodium 137 mEq/L (136-145); eGFR For African Americans > 60 (> 60); eGFR For Non-African Americans > 60 (> 60)
[2017-05-12 07:14] LABS: Albumin 3.3 g/dL (3.5-5.0); Albumin/Globulin Ratio 1.3 (1.1-2.2); Bilirubin,Direct 0.2 mg/dL (0.0-0.5); Bilirubin,Indirect 0.1 mg/dL (0.0-1.2); Bilirubin,Total 0.3 mg/dL (0.2-1.2); Globulin 2.6 g/dL (2.4-3.5); Total Protein 5.9 g/dL (6.0-8.3)
[2017-05-12] MEDS: Gabapentin 300 MG CAPSULE PO SCH ×2 (07:44→20:40)
[2017-05-12] MEDS: Nicotine 21 MG PATCH.TD24 TD SCH (07:45)
--- NOTE | 2017-05-12 08:59 | General Surgery Progress Note ---
<Vasquez Weinberg - Last Filed: 05/12/17 09:14> Date of Encounter: 05/12/17 Time of Encounter: 08:57 - Assessment and Plan (1) Abdominal pain Current Visit: Yes Status: Acute POD#1 S/P Laproscopic Choleocysectomy Afebrile. Hgb stable Clear liquid diet. Ok to advance as tolerated. Pain controlled IVF DVT Prophylaxis - heparin Ambulate with assistance Encouraged ICS No BS noted. Will monitor bowel function. Continue supportive care and management (2) Obesity (BMI 30-39.9) Current Visit: Yes Status: Chronic (3) Tobacco abuse Current Visit: Yes Status: Acute Smoking cessation education Nicotine patch daily DuoNeb every 6 hours scheduled Subjective Patient reports: no new complaints, still having pain, tolerating liquids well, no flatus, no bowel movement, vomiting Objective Vital Signs - Last 8 Hours Temp Pulse Resp BP Pulse Ox 05/12/17 07:07 98.3 F 67 18 137/80 96 05/12/17 04:20 14 93 05/12/17 04:00 97.9 F 74 16 123/75 94 Intake and Output 05/11/17 05/12/17 05/12/17 23:59 07:59 15:59 Output Total 550 / 550 Balance -10 / 10 -550 / -550 Output: Urine 550 / 550 Estimated Blood Loss Other: Weight 138.5 kg Patient Weight 05/12/17 23:59 Weight 138.5 kg - General physical appearance no distress, obese - Eyes normal ocular movement - ENT normal mucosa - Neck Neck exam: trachea midline - Respiratory normal respiratory effort, clear to auscultation - Cardiovascular Cardiovascular exam: Present: RRR - Abdomen Abdomen: Present: soft, tender (RUQ), wound (Trochar incisions are c/d/i. no erythema or drainage. ). Absent: bowel sounds present - Neurologic CN 2-12 grossly intact - Psychiatric oriented to time, oriented to person, oriented to place, speech is normal, memory intact - Labs 05/12/17 06:25 05/12/17 06:25 Short CBC 05/12/17 Range/Units 06:25 WBC 6.9 (4.3-11.1) K/mcL Hgb 12.7 L (12.9-16.9) g/dL Hct 40.7 (37.5-50.1) % Plt Count 199 (140-400) K/mcL Neutrophils # 5.8 (1.6-8.9) K/mcL BMP 05/12/17 Range/Units 06:25 Sodium 137 (136-145) mEq/L Potassium 4.9 H (3.5-4.5) mEq/L Chloride 105 (98-109) mEq/L Carbon Dioxide 28 (19-29) mEq/L BUN 7 L (8-26) mg/dL Creatinine 1.07 (0.72-1.25) mg/dL Glucose 201 H (70-99) mg/dL Calcium 9.1 (8.6-10.8) mg/dL Liver Function 05/12/17 Range/Units 06:25 Total Bilirubin 0.3 (0.2-1.2) mg/dL Direct Bilirubin 0.2 (0.0-0.5) mg/dL AST 27 (5-34) Units/L ALT 28 (0-55) Units/L Alkaline Phosphatase 57 (38-126) Units/L Albumin 3.3 L (3.5-5.0) g/dL Vital Signs Temp Pulse Resp BP Pulse Ox 05/12/17 07:07 98.3 F 67 18 137/80 96 05/12/17 04:20 14 93 05/12/17 04:00 97.9 F 74 16 123/75 94 05/12/17 00:40 98.1 F 68 14 120/66 94 05/11/17 23:40 97.7 F 62 14 129/78 94 05/11/17 23:08 97.9 F 62 14 126/78 92 05/11/17 22:45 97.7 F 60 14 132/81 91 05/11/17 22:24 98.2 F 60 18 137/80 95 05/11/17 22:14 63 16 103/74 94 05/11/17 22:04 98.3 F 63 16 136/72 93 05/11/17 21:54 63 16 136/72 92 05/11/17 21:43 67 18 120/75 95 05/11/17 21:34 97.7 F 65 12 164/89 92 05/11/17 16:02 20 93 05/11/17 15:40 97.5 F L 72 16 133/78 95 05/11/17 11:34 97.7 F 67 16 147/71 96 05/11/17 11:07 16 95 Intake and Output 05/11/17 05/12/17 05/12/17 23:59 07:59 15:59 Output Total 550 / 550 Balance -10 10 -550 / -550 Output: Urine 550 / 550 Estimated Blood Loss Other: Weight 138.5 kg Patient Weight 05/12/17 23:59 Weight 138.5 kg Consult Discharge Plan - Plan Additional Instructions: No lifting more than 20 pounds for 2 weeks. Okay to take a shower in 24 hours. No tub baths or pools for 1 week. Okay to ride in the car wearing a seatbelt and climb steps. No driving until off narcotics for 24 hours and able to react safely Remove Steri-Strips in 1 week Do not take pain medicine/narcotics on an empty stomach it will likely cause nausea and possibly vomiting. If pain medication is too strong okay to break in half Referrals: Lalo Moss MD [Non-Partnered Physician] - 05/16/17 3:00 pm Maci Palma MD [Partnered Physician] - (or Bisi Morris for post op check before June 01 as patient is having shoulder surgery) <Maci Palma - Last Filed: 05/13/17 08:58> Date of Encounter: 05/12/17 Time of Encounter: 17:20 - Assessment and Plan (1) Abdominal pain Current Visit: Yes Status: Acute prn pain control Qualifiers: Qualified Code(s): R10.12 - Left upper quadrant pain (2) HTN (hypertension) Current Visit: Yes Status: Acute Qualifiers: Qualified Code(s): I10 - Essential (primary) hypertension (3) Acute pancreatitis Current Visit: Yes Status: Acute resolved Qualifiers: Qualified Code(s): K85.10 - Biliary acute pancreatitis without necrosis or infection (4) Gallstone pancreatitis Current Visit: Yes Status: Acute pod 1 lap cholecystectomy, unable to do cholangiograms tolerating diet, lft's and wbc wnl ambulating well ok to DC from surgical standpoint when medically appropriate will sign off, please call if needed Subjective Patient reports: feels better, still having pain, pain is less, tolerating liquids well, no flatus, no bowel movement, afebrile Objective Vital Signs - Last 8 Hours Temp Pulse Resp BP Pulse Ox 05/13/17 07:01 94 05/13/17 06:32 98.0 F 76 17 118/65 94 05/13/17 03:46 98.1 F 77 17 138/76 94 Intake and Output 05/12/17 05/13/17 05/13/17 23:59 07:59 15:59 Intake Total 1000 / 1000 600 / 600 Output Total 800 / 800 1225 / 1225 Balance 200 / 200 -625 / -625 Intake: IV Fluids 1000 / 1000 600 / 600 0.9 % Sodium Chloride 1, 1000 / 1000 600 / 600 000 ML @ 80 mls/hr IVC . [id number] LAURA Rx#: [id number] Oral 0 / 0 0 / 0 Output: Urine 800 / 800 1225 / 1225 Other: # Bowel Movements 0 Weight 139.2 kg Patient Weight 05/13/17 23:59 Weight 139.2 kg - General physical appearance well developed, well nourished, no distress, no pain, obese - Eyes PERRL, normal ocular movement - ENT normal mucosa, normocephalic - Neck Neck exam: trachea midline - Respiratory normal expansion, clear to auscultation - Cardiovascular Cardiovascular exam: Present: RRR - Abdomen Abdomen: Present: bowel sounds present, soft, tender (appropriate post op tenderness) - Integumentary no growths, no abnormal pigmentation - Neurologic CN 2-12 grossly intact - Musculoskeletal normal posture - Psychiatric oriented to time, oriented to person, oriented to place, memory intact - Labs 05/13/17 04:20 05/13/17 04:20 Diabetes panel 05/13/17 Range/Units 04:20 Sodium 141 (136-145) mEq/L Potassium 3.8 D (3.5-4.5) mEq/L Chloride 104 (98-109) mEq/L Carbon Dioxide 33 H (19-29) mEq/L BUN 7 L (8-26) mg/dL Creatinine 1.04 (0.72-1.25) mg/dL Glucose 176 H (70-99) mg/dL Calcium 8.6 (8.6-10.8) mg/dL Calcium panel 05/13/17 Range/Units 04:20 Calcium 8.6 (8.6-10.8) mg/dL Pituitary panel 05/13/17 Range/Units 04:20 Sodium 141 (136-145) mEq/L Potassium 3.8 D (3.5-4.5) mEq/L Chloride 104 (98-109) mEq/L Carbon Dioxide 33 H (19-29) mEq/L BUN 7 L (8-26) mg/dL Creatinine 1.04 (0.72-1.25) mg/dL Glucose 176 H (70-99) mg/dL Calcium 8.6 (8.6-10.8) mg/dL Adrenal panel 05/13/17 Range/Units 04:20 Sodium 141 (136-145) mEq/L Potassium 3.8 D (3.5-4.5) mEq/L Chloride 104 (98-109) mEq/L Carbon Dioxide 33 H (19-29) mEq/L BUN 7 L (8-26) mg/dL Creatinine 1.04 (0.72-1.25) mg/dL Glucose 176 H (70-99) mg/dL Calcium 8.6 (8.6-10.8) mg/dL - Attending Attestation I examined this patient and my medical decision-making was reviewed with the BOUNT[employer] TRAPPER/PA/Advanced Practice Nurse/Resident Physician. I agree with the documented findings, disposition and treatment plan as described except to the extent set forth below.
--- NOTE | 2017-05-12 09:15 | Internal Med Progress Note ---
Date of Encounter: 05/12/17 Time of Encounter: 09:13 - Assessment and plan (1) Acute pancreatitis Current Visit: Yes Status: Acute Assessment and plan: Dilaudid as needed, IV fluids Abdominal ultrasound showed cholelithiasis without cholecystitis and an incidental left renal cyst. Surgical service consulted, underwent laparoscopic cholecystectomy on 05/11/2017 the patient does not drink alcohol Lipase was 169 Advance diet to full liquids Patient is requesting to be discharged tomorrow Qualifiers: Pancreatitis type: biliary Acute pancreatitis complication: no infection or necrosis Qualified Code(s): K85.10 - Biliary acute pancreatitis without necrosis or infection (2) Acute renal failure Current Visit: Yes Status: Acute Assessment and plan: Secondary to dehydration Continue IV fluids Qualifiers: Acute renal failure type: unspecified Qualified Code(s): N17.9 - Acute kidney failure, unspecified (3) Chronic pain Current Visit: Yes Status: Acute Assessment and plan: Continue gabapentin Qualifiers: Chronic pain type: chronic pain syndrome Qualified Code(s): G89.4 - Chronic pain syndrome (4) Prostate abscess Current Visit: Yes Status: Acute Assessment and plan: CT scan of the abdomen shows curvilinear fluid attenuation area on the prostate suspicious for fluid collection, abscess is not excluded although the patient is asymptomatic. There is a slight haziness in the peripancreatic fat question mild pancreatitis Consider antibiotics and urology consult if he becomes symptomatic (5) Abdominal pain Current Visit: Yes Status: Acute Qualifiers: Abdominal location: left upper quadrant Qualified Code(s): R10.12 - Left upper quadrant pain (6) HTN (hypertension) Current Visit: Yes Status: Acute Assessment and plan: Stable Qualifiers: Hypertension type: essential hypertension Qualified Code(s): I10 - Essential (primary) hypertension (7) Unilateral AKA Current Visit: Yes Status: Acute Qualifiers: Laterality: left Qualified Code(s): Z89.612 - Acquired absence of left leg above knee - Subjective Interval history: Complaining of nausea, mild diffuse abdominal pain mainly epigastric pain 6 out of 10 in intensity, mild nausea, no diarrhea, no fevers. No chest pain or shortness of breath. No headaches - Constitutional Vitals: Temp Pulse Resp BP Pulse Ox 98.3 F 67 18 137/80 96 05/12/17 07:07 05/12/17 07:07 05/12/17 07:07 05/12/17 07:07 05/12/17 07:07 General appearance: Present: A&O X 3, morbidly obese, no acute distress Exam: Head Head exam: Present: atraumatic, normocephalic - Eye Eye exam: Present: PERRL, conjuntiva pink, sclera anicteric Pupils: Present: PERRL - Neck Neck exam general surgery: Present: supple, trachea midline. Absent: lymphadenopathy - Respiratory Respiratory exam: Present: CTAB. Absent: accessory muscle use, rales, rhonchi, wheezes - Cardiovascular Cardiovascular exam: Present: RRR, +S1, +S2. Absent: diastolic murmur, gallop, rubs, systolic murmur - GI/Abdominal GI/Abdominal exam: Present: normal bowel sounds, soft, tenderness (Epigastric and left upper quadrant tenderness), no peritoneal signs Abdominal surgical wounds without any signs of hematoma or infection - Extremities Exam Extremities exam: Present: warm, radial pulses palpable and symetrical. Absent : calf tenderness, cyanotic, pedal edema Additional comments: Left [id number]-[id number] amputation - Neurological Exam Neurological exam: Present: CN II-XII intact, oriented X3, no focal deficits. Absent: pronater drift, facial droop, speech deficit - Skin Skin exam: Present: dry, intact Internal Medicine: Result - Labs CBC & Chem 7: 05/12/17 06:25 05/12/17 06:25 Labs: Short CBC 05/12/17 Range/Units 06:25 WBC 6.9 (4.3-11.1) K/mcL Hgb 12.7 L (12.9-16.9) g/dL Hct 40.7 (37.5-50.1) % Plt Count 199 (140-400) K/mcL Neutrophils # 5.8 (1.6-8.9) K/mcL BMP 05/12/17 06:25 Sodium 137 Potassium 4.9 H Chloride 105 Carbon Dioxide 28 BUN 7 L Creatinine 1.07 Glucose 201 H Calcium 9.1 Liver Function 05/12/17 Range/Units 06:25 Total Bilirubin 0.3 (0.2-1.2) mg/dL Direct Bilirubin 0.2 (0.0-0.5) mg/dL AST 27 (5-34) Units/L ALT 28 (0-55) Units/L Alkaline Phosphatase 57 (38-126) Units/L Albumin 3.3 L (3.5-5.0) g/dL - ABG Interpretation ABG results: PT/INR, D-dimer PT 11.7 Seconds (9.4-12.1) 05/11/17 04:02 Consult Discharge Plan - Plan Referrals: Lalo Moss MD [Non-Partnered Physician] - 05/16/17 3:00 pm
[2017-05-12] MEDS: 0.9 % Sodium Chloride 1,000 ML IVC SCH ×2 (11:30→22:53)
[2017-05-12] MEDS ORDERED: hydrOXYzine pamoate 25 MG CAPSULE PO SCH (21:00)
[2017-05-12] MEDS: Ondansetron 4 MG/2 ML VIAL IVP PRN (22:54)
[2017-05-13] MEDS: *HR* OxyCODONE/APAP 5/325 TABLET PO PRN ×2 (00:05→13:39)
[2017-05-13] MEDS: Ipratropium/Albuterol Neb 3 ML IH SCH ×2 (04:16→10:40)
[2017-05-13] MEDS: *HR* HYDROmorphone (PF) 1 MG/ML SYRINGE IVP PRN ×2 (04:28→07:46)
[2017-05-13 05:13] LABS: Hematocrit 38.7 % (37.5-50.1); Hemoglobin 11.9 g/dL (12.9-16.9); Mean Corpuscular HGB Conc 30.7 g/dL (31.6-35.5); Mean Corpuscular Hemoglobin 26.4 pg (28.0-33.3); Mean Corpuscular Volume 85.8 fL (83.0-100.0); Mean Platelet Volume 10.5 fL (9.4-12.4); Platelet Count 173 K/mcL (140-400); Red Blood Count 4.51 M/mcL (4.19-5.50); Red Cell Distribution Width 15.1 % (11.5-14.5)
[2017-05-13 05:26] LABS: BUN/Creatinine Ratio 7 (6-26); Blood Urea Nitrogen 7 mg/dL (8-26); Calcium 8.6 mg/dL (8.6-10.8); Carbon Dioxide 33 mEq/L (19-29); Chloride 104 mEq/L (98-109); Glucose 176 mg/dL (70-99); Osmolality,Calculated 294 (280-300); Sodium 141 mEq/L (136-145); eGFR For African Americans > 60 (> 60); eGFR For Non-African Americans > 60 (> 60)
[2017-05-13 05:58] LABS: Potassium 3.8 mEq/L (3.5-4.5)
[2017-05-13] MEDS: *HR* Heparin 5,000 UNIT/ML VIAL SQ SCH (06:11)
[2017-05-13] MEDS: Gabapentin 300 MG CAPSULE PO SCH (07:45)
[2017-05-13] MEDS: Nicotine 21 MG PATCH.TD24 TD SCH (07:46)
[2017-05-13] MEDS: Ondansetron 4 MG/2 ML VIAL IVP PRN (07:50)
[2017-05-13] MEDS ORDERED: Ondansetron 4 MG/2 ML VIAL IVP ONE (08:37)
[2017-05-13] MEDS ORDERED: Simethicone 80 MG TAB.CHEW PO PRN (08:41)
--- NOTE | 2017-05-13 08:46 | General Surgery Progress Note ---
Date of Encounter: 05/13/17 Time of Encounter: 08:30 - Assessment and Plan (1) Abdominal pain Current Visit: Yes Status: Acute POD#2 S/P Laproscopic Choleocysectomy Continue supportive care and discomfort control. Cardiac diet as tolerated Okay to discharge from a surgical perspective if the patient tolerates diet Will give one time extra dose of Zofran 4 mg IV push now, Simethicone 80 mg, and Pepcid 40 mg. Qualifiers: Abdominal location: left upper quadrant Qualified Code(s): R10.12 - Left upper quadrant pain (2) Chronic pain Current Visit: Yes Status: Acute Although he takes chronic pain medications at home, he states current acute surgical discomfort is controlled with current regimen. Will continue to monitor. Qualifiers: Chronic pain type: chronic pain syndrome Qualified Code(s): G89.4 - Chronic pain syndrome Subjective Patient reports: no new complaints, feels better, pain is less, tolerating liquids well, voiding w/o difficulty, flatus, no bowel movement, nausea (some nausea, no vomiting) Narrative: HPI Mr. River is sitting upright at the edge of bed. He is POD #2 of Laproscopic Choleocysectomy. He has complained of nausea and therefore yesterday requested to remain in the hospital. He states this nausea has somewhat improved product is accompanied by feelings of indigestion which is outside his norm. He does not take proton pump inhibitors on a regular basis. He denies vomiting, diarrhea , or bowel movement. He reports some flatus. He is up at the side of the bed, but has not ambulated due to his left AKA. He is urinating without difficulty. Objective Vital Signs - Last 8 Hours Temp Pulse Resp BP Pulse Ox 05/13/17 07:01 94 05/13/17 06:32 98.0 F 76 17 118/65 94 05/13/17 03:46 98.1 F 77 17 138/76 94 Intake and Output 05/12/17 05/13/17 05/13/17 23:59 07:59 15:59 Intake Total 1000 / 1000 600 / 600 Output Total 800 / 800 1225 / 1225 Balance 200 / 200 -625 / -625 Intake: IV Fluids 1000 / 1000 600 / 600 0.9 % Sodium Chloride 1, 1000 / 1000 600 / 600 000 ML @ 80 mls/hr IVC . [id number] LAURA Rx#: [id number] Oral 0 / 0 0 / 0 Output: Urine 800 / 800 1225 / 1225 Other: # Bowel Movements 0 Weight 139.2 kg Patient Weight 05/13/17 23:59 Weight 139.2 kg - General physical appearance well developed, well nourished, no distress - Eyes normal ocular movement - ENT normal mucosa - Neck Neck exam: trachea midline - Respiratory normal respiratory effort, clear to auscultation - Cardiovascular Cardiovascular exam: Present: RRR - Abdomen Abdomen: Present: bowel sounds present, soft (Rotund), tender (Expected postoperative tenderness). Absent: guarding, rebound, rigid - Incision Incision: Present: clean and dry, intact - Neurologic CN 2-12 grossly intact - Musculoskeletal normal posture, other (Left AKA noted) - Psychiatric oriented to time, oriented to person, oriented to place - Labs 05/13/17 04:20 05/13/17 04:20 Diabetes panel 05/13/17 Range/Units 04:20 Sodium 141 (136-145) mEq/L Potassium 3.8 D (3.5-4.5) mEq/L Chloride 104 (98-109) mEq/L Carbon Dioxide 33 H (19-29) mEq/L BUN 7 L (8-26) mg/dL Creatinine 1.04 (0.72-1.25) mg/dL Glucose 176 H (70-99) mg/dL Calcium 8.6 (8.6-10.8) mg/dL Calcium panel 05/13/17 Range/Units 04:20 Calcium 8.6 (8.6-10.8) mg/dL Pituitary panel 05/13/17 Range/Units 04:20 Sodium 141 (136-145) mEq/L Potassium 3.8 D (3.5-4.5) mEq/L Chloride 104 (98-109) mEq/L Carbon Dioxide 33 H (19-29) mEq/L BUN 7 L (8-26) mg/dL Creatinine 1.04 (0.72-1.25) mg/dL Glucose 176 H (70-99) mg/dL Calcium 8.6 (8.6-10.8) mg/dL Adrenal panel 05/13/17 Range/Units 04:20 Sodium 141 (136-145) mEq/L Potassium 3.8 D (3.5-4.5) mEq/L Chloride 104 (98-109) mEq/L Carbon Dioxide 33 H (19-29) mEq/L BUN 7 L (8-26) mg/dL Creatinine 1.04 (0.72-1.25) mg/dL Glucose 176 H (70-99) mg/dL Calcium 8.6 (8.6-10.8) mg/dL Consult Discharge Plan - Plan Additional Instructions: No lifting more than 20 pounds for 2 weeks. Okay to take a shower in 24 hours. No tub baths or pools for 1 week. Okay to ride in the car wearing a seatbelt and climb steps. No driving until off narcotics for 24 hours and able to react safely Remove Steri-Strips in 1 week Do not take pain medicine/narcotics on an empty stomach it will likely cause nausea and possibly vomiting. If pain medication is too strong okay to break in half Referrals: Lalo Moss MD [Non-Partnered Physician] - 05/16/17 3:00 pm Maci Palma MD [Partnered Physician] - (May 26 at 2:25 pm as patient is having shoulder surgery in May) Prescriptions: Ondansetron ODT [Zofran ODT] 4 mg SL Q4HR #30 tab.rapdis OxyCODONE/APAP 5/325 [Percocet 5/325 MG] 1 each PO Q4HR PRN #30 tab PRN Reason: Moderate Pain Docusate [Colace] 100 mg PO DAILY #30 capsule Famotidine [Pepcid] 40 mg PO BID #60 tab
[2017-05-13] MEDS ORDERED: Famotidine 20 MG TABLET PO SCH (09:00)
[2017-05-13] MEDS ORDERED: *HR* Promethazine 25 MG/ML VIAL IVP PRN (09:25)
--- NOTE | 2017-05-13 09:46 | Event Note ---
Date of Encounter: 05/13/17 Time of Encounter: 08:30 While addressing pt's follow-up appointment and d/c pain medications, pt reported nausea and indigestion. Will treat with one time doses per MAR> Reviewed with bedside RN. Ok to give one dose of promethazine if nausea not relieved. Appointment card and home medications rx placed in pt's green folder. D/c planning per medicine as surgery has signed off.
[2017-05-13 10:56] VITALS: BP 163/89
[2017-05-13] MEDS: 0.9 % Sodium Chloride 1,000 ML IVC SCH (11:59)
--- NOTE | 2017-05-13 13:30 | Discharge Summary ---
<Andrew Portillo - Last Filed: 05/13/17 13:45> Date of Encounter: 05/13/17 Time of Encounter: 13:26 - Discharge Diagnosis (1) Acute pancreatitis Priority: Primary Status: Acute Comments: -Secondary to gallstones -The patient underwent laproscopic cholecystectomy yesterday. Lipase is down. -Patient has been improving, should follow up with surgery outpatient as directed. Qualifiers: Pancreatitis type: biliary Acute pancreatitis complication: no infection or necrosis Qualified Code(s): K85.10 - Biliary acute pancreatitis without necrosis or infection (2) Abdominal pain Priority: Primary Status: Acute Comments: Pain is largely resolved s/p cholecystectomy. Pain medication will be prescribed , and a laxative will be provided to prevent constipation. Qualifiers: Abdominal location: left upper quadrant Qualified Code(s): R10.12 - Left upper quadrant pain (3) HTN (hypertension) Priority: Secondary Status: Chronic Qualifiers: Hypertension type: essential hypertension Qualified Code(s): I10 - Essential (primary) hypertension (4) Unilateral AKA Priority: Secondary Status: Chronic Qualifiers: Laterality: left Qualified Code(s): Z89.612 - Acquired absence of left leg above knee (5) Acute renal failure Priority: Secondary Status: Acute Qualifiers: Acute renal failure type: unspecified Qualified Code(s): N17.9 - Acute kidney failure, unspecified (6) Prostate abscess Priority: Secondary Status: Acute Comments: CT could not rule out abscess but patient is asymptomatic with no signs of infection. Patient should followup with primary care. (7) Obesity (BMI 30-39.9) Priority: Secondary Status: Chronic (8) Tobacco abuse Priority: Secondary Status: Acute Comments: Patient advised to quit smoking. - Discharge Medications Prescriptions: Ondansetron ODT [Zofran ODT] 4 mg SL Q4HR #30 tab.rapdis OxyCODONE/APAP 5/325 [Percocet 5/325 MG] 1 each PO Q4HR PRN #30 tab PRN Reason: Moderate Pain Docusate [Colace] 100 mg PO DAILY #30 capsule Famotidine [Pepcid] 40 mg PO BID #60 tab Lansoprazole [Prevacid] 30 mg PO QAM #30 capsule.dr Dipak Medications: Gabapentin [Neurontin] 300 mg PO TID 05/08/17 [History] HydrOXYzine Pamoate [Vistaril] 50 mg PO HS PRN 05/08/17 [History] Meloxicam [Mobic] 15 mg PO DAILY 05/08/17 [History] Oxycodone HCl/Acetaminophen [Percocet 7.5-325 mg Tablet] 1 tab PO Q8H PRN [History] Sertraline [Zoloft] 200 mg PO DAILY 05/08/17 [History] Tizanidine HCl 4 mg PO BID PRN 05/08/17 [History] Docusate [Colace] 100 mg PO DAILY #30 capsule 05/13/17 [Rx] Famotidine [Pepcid] 40 mg PO BID #60 tab 05/13/17 [Rx] Lansoprazole [Prevacid] 30 mg PO QAM #30 capsule. 05/13/17 [Rx] Ondansetron ODT [Zofran ODT] 4 mg SL Q4HR #30 tab.rapdis 05/13/17 [Rx] OxyCODONE/APAP 5/325 [Percocet 5/325 MG] 1 each PO Q4HR PRN #30 tab 05/13/17 [Rx ] Allergies/Adverse Reactions: Allergies No Known Allergies Allergy (Verified 05/08/17 10:52) Date of admission: 05/09/17 17:21 Primary care physician: PCP NO Consults: 05/10/17 09:02 Consult to Surgery [CONS] Routine Consulting Provider: Maci Palma Reason for Consult: cholelithiasis, pancreatitis Call Completed: Yes - Patient Status Disposition: Home, Self-Care Condition: Good Overall status at discharge: patient is progressing back to baseline - Discharge Instructions Follow Up With: Maci Palma MD [Partnered Physician] - 05/26/17 2:25 pm (May 26 at 2: 25 pm as patient is having shoulder surgery in May) Lalo Moss MD [Non-Partnered Physician] - 05/16/17 3:00 pm Additional Instructions: No lifting more than 20 pounds for 2 weeks. Okay to take a shower in 24 hours. No tub baths or pools for 1 week. Okay to ride in the car wearing a seatbelt and climb steps. No driving until off narcotics for 24 hours and able to react safely Remove Steri-Strips in 1 week Do not take pain medicine/narcotics on an empty stomach it will likely cause nausea and possibly vomiting. If pain medication is too strong okay to break in half - Diet and Activity Activity: increase activity as tolerated Diet: low salt diet Hospital course: Mr. River is a 62 year old male who Presented to the emergency room on 05/08 with acute left upper quadrant abdominal pain that had been going on for 2-3 days. At that time he had a CT which demonstrated prostate fluid they could not rule out a prostatic abscess, and haziness of the peripancreatic fat suggestive for acute pancreatitis. He had a white blood cell count 11.4 and a lipase of 64. His lipase was redrawn the next day and had risen to 169. An abdominal ultrasound was ordered and demonstrated cholelithiasis with a left renal cyst, and surgery was consulted for a laparoscopic cholecystectomy which was performed on May 11. Patient's white count dropped to 6.0, and his abdominal pain largely resolved. He did complain with some nausea, vomiting, constipation post surgery which was largely resolved by a GI cocktail. Patient will be discharged for outpatient follow-up. - Time Spent with Patient Total time spent providing and/or coordinating discharge services: - Constitutional Vitals: Temp Pulse Resp BP Pulse Ox 97.7 F 73 18 163/89 100 05/13/17 10:54 05/13/17 10:54 05/13/17 10:54 05/13/17 10:54 05/13/17 10:54 General appearance: Present: A&O X 3, morbidly obese, no acute distress Exam: Head Head exam: Present: atraumatic, normocephalic - Eye Eye exam: Present: PERRL, conjuntiva pink, sclera anicteric Pupils: Present: PERRL - Neck Neck exam general surgery: Present: supple, trachea midline. Absent: lymphadenopathy - Respiratory Respiratory exam: Present: CTAB. Absent: accessory muscle use, rales, rhonchi, wheezes - Cardiovascular Cardiovascular exam: Present: RRR, +S1, +S2. Absent: diastolic murmur, gallop, rubs, systolic murmur - GI/Abdominal GI/Abdominal exam: Present: normal bowel sounds, soft, tenderness (Epigastric and left upper quadrant tenderness), no peritoneal signs Abdominal surgical wounds without any signs of hematoma or infection - Extremities Exam Extremities exam: Present: warm, radial pulses palpable and symetrical. Absent : calf tenderness, cyanotic, pedal edema Additional comments: Left [id number] amputation - Neurological Exam Neurological exam: Present: CN II-XII intact, oriented X3, no focal deficits. Absent: pronater drift, facial droop, speech deficit - Skin Skin exam: Present: dry, intact <Indio Carias - Last Filed: 05/13/17 19:26> Date of Encounter: 05/13/17 - Discharge Diagnosis (1) Acute pancreatitis Status: Acute Qualifiers: Pancreatitis type: biliary Acute pancreatitis complication: no infection or necrosis Qualified Code(s): K85.10 - Biliary acute pancreatitis without necrosis or infection (2) Abdominal pain Status: Acute Qualifiers: Abdominal location: left upper quadrant Qualified Code(s): R10.12 - Left upper quadrant pain (3) Cholecystitis, acute Priority: Primary Status: Acute (4) HTN (hypertension) Status: Chronic Qualifiers: Hypertension type: essential hypertension Qualified Code(s): I10 - Essential (primary) hypertension (5) Tobacco abuse Status: Acute (6) Unilateral AKA Status: Chronic Qualifiers: Laterality: left Qualified Code(s): Z89.612 - Acquired absence of left leg above knee (7) Obesity (BMI 30-39.9) Status: Chronic Date of admission: 05/09/17 17:21 Primary care physician: PCP NO Consults: 05/10/17 09:02 Consult to Surgery [CONS] Routine Consulting Provider: Maci Palma Reason for Consult: cholelithiasis, pancreatitis Call Completed: Yes Hospital course: Mr. River is a 62 year old male - Time Spent with Patient Total time spent providing and/or coordinating discharge services: 40min - Constitutional Vitals: Temp Pulse Resp BP Pulse Ox 97.7 F 73 18 163/89 100 05/13/17 10:54 05/13/17 10:54 05/13/17 10:54 05/13/17 10:54 05/13/17 10:54 - Attending Attestation I examined this patient and my medical decision-making was reviewed with the Resident Physician on 05/13/17. I agree with the documented findings, disposition and treatment plan as described except to the extent set forth below. Mr. River has been admitted for acute pancreatitis and cholecystitis. He is s/ p cholecytstectomy. This AM he had some nausea but is doing better at this time. Passing gas. No nausea. Ate most of lunch. No fever or chills. Feels ready to go home and vitals are stable. Exam Alert. Comfortable Mucus membranes moist Heart reg No wheeze Abd soft - no peritoneal signs Plan D/C home today Advance diet as able Follow up with surgeon.
== END 2017-05-13 14:04 | disposition home or self-care (01) | DRG 418 ==
LOC: EMEROO 21:15 → 3ANU 21:15 → SUATTDRO 05-09 17:21 → 3ANU 05-10 11:04
PROVIDERS: ADMIT Internal Medicine Endocrinology, Diabetes & Metabolism; ATTEND Internal Medicine

== ENCOUNTER 2018-10-04 18:53 | Inpatient (IN) ==
[2018-10-04] MEDS ORDERED: 0.9 % Sodium Chloride 1,000 ML IVC ONE (19:14)
[2018-10-04] MEDS ORDERED: Pantoprazole 40 MG VIAL IVP ONE (19:14)
[2018-10-04] MEDS ORDERED: Ondansetron 4 MG/2 ML VIAL IVP ONE (19:14)
--- NOTE | 2018-10-04 19:29 | Emergency Department Note ---
Disposition Clinical Impression: Lower gastrointestinal hemorrhage Disposition: Still a Patient Forms: ED Satisfaction Letter General Adult HPI - General Chief complaint: ED GI Bleed Stated complaint: black stool Time Seen by Provider: 10/04/18 19:08 Nursing Notes Reviewed: Yes Vital Signs Reviewed: Yes - History of Present Illness HPI Narrative: ED attending Attestation note I examined this patient and my medical decision-making was reviewed with the Resident Physician/nurse practitioner/physician evaluation assistant/medical student. I agree with the documented findings, disposition and treatment plan as described except to the extent set forth below. I personally have spent [id number] time with the patient. Briefly: 63-year-old male history of hypertension former smoker has been feeling weak and not well for the past 3 days when he started having black stool s. Patient is not on iron supplements he said no prior history of GI bleeding no prior history of colon cancer nor does colon cancer in the family. Patient appears slightly pale Lyrica spell conjunctiva abdomen is surgically benign Hemoccult guaiac card is pending at the lab patient getting screening labs IV fluid EKG.& Screen. Pain Scale: 8 - Related Data Home Medications Medication Instructions Recorded Confirmed Gabapentin [Neurontin] 300 mg PO TID 05/08/17 05/08/17 HydrOXYzine Pamoate [Vistaril] 50 mg PO HS PRN 05/08/17 05/08/17 Meloxicam [Mobic] 15 mg PO DAILY 05/08/17 05/08/17 Oxycodone HCl/Acetaminophen 1 tab PO Q8H PRN 05/08/17 05/08/17 [Percocet 7.5-325 mg Tablet] Sertraline [Zoloft] 200 mg PO DAILY 05/08/17 05/08/17 Tizanidine HCl 4 mg PO BID PRN 05/08/17 05/08/17 Previous Rx's Medication Instructions Recorded Docusate [Colace] 100 mg PO DAILY #30 capsule 05/13/17 Famotidine [Pepcid] 40 mg PO BID #60 tab 05/13/17 Lansoprazole [Prevacid] 30 mg PO QAM #30 capsule. 05/13/17 Ondansetron ODT [Zofran ODT] 4 mg SL Q4HR #30 tab.rapdis 05/13/17 OxyCODONE/APAP 5/325 [Percocet 1 each PO Q4HR PRN #30 tab 05/13/17 5/325 MG] Ciprofloxacin HCl [Cipro] 500 mg PO BID #14 tablet 07/26/18 HYDROcodone/Acet 5/325 mg [[place] 1 tab PO Q6H PRN 2 Days #8 tab 07/26/18 5-325 mg] Naproxen [Naprosyn] 500 mg PO BID PRN #10 tablet 07/26/18 Allergies Allergy/AdvReac Type Severity Reaction Status Date / Time No Known Allergies Allergy Verified 10/04/18 19:02 Past Medical History - Past Medical History Medical history: Reports: no medical history, other Surgical history: Reports: appendectomy, orthopedic, other Psychiatric history: Reports: anxiety, depression - Social History Smoking Status: Never smoker Smokeless Tobacco Status: No Alcohol use: Reports: rarely Drug use: Reports: none Course Vital Signs Temperature 98.4 F 10/04/18 19:01 Pulse Rate 102 10/04/18 19:01 Respiratory Rate 18 10/04/18 19:01 Blood Pressure 124/75 10/04/18 19:01 O2 Sat by Pulse Oximetry 96 10/04/18 19:01 Temperature 98.4 F 10/04/18 19:01 Pulse Rate 102 10/04/18 19:01 Respiratory Rate 18 10/04/18 19:01 Blood Pressure 124/75 10/04/18 19:01 O2 Sat by Pulse Oximetry 96 10/04/18 19:01 Oxygen Delivery Oxygen Delivery Room Air
[2018-10-04 19:42] LABS: Basophils # 0.1 K/mcL (0.0-0.2); Basophils % 0.8 %; Eosinophils # 0.4 K/mcL (0.0-0.6); Eosinophils % 4.6 %; Hematocrit 31.6 % (37.5-50.1); Hemoglobin 9.9 g/dL (12.9-16.9); Immature Granulocytes % 0.4 % (0-4); Lymphocytes # 1.9 K/mcL (0.6-4.6); Lymphocytes % 21.6 %; Mean Corpuscular HGB Conc 31.3 g/dL (31.6-35.5); Mean Corpuscular Hemoglobin 24.8 pg (28.0-33.3); Mean Corpuscular Volume 79.2 fL (83.0-100.0); Mean Platelet Volume 10.3 fL (9.4-12.4); Monocytes # 0.5 K/mcL (0.0-1.3); Monocytes % 5.6 %; Neutrophils # 5.8 K/mcL (1.6-8.9); Platelet Count 215 K/mcL (140-400); Red Blood Count 3.99 M/mcL (4.19-5.50); Red Cell Distribution Width 15.2 % (11.5-14.5)
--- NOTE | 2018-10-04 19:43 | Emergency Department Note ---
Disposition Clinical Impression: Lower gastrointestinal hemorrhage Disposition: Admitted As Inpatient Condition: Fair Time of Disposition: 21:16 GI Bleed HPI - General Chief complaint: ED GI Bleed Stated complaint: black stool Time Seen by Provider: 10/04/18 19:08 Source: patient Mode of arrival: ambulatory Limitations: no limitations Nursing Notes Reviewed: Yes Vital Signs Reviewed: Yes - History of Present Illness HPI Narrative: 53-year-old male presents to the emergency department with possible GI bleed as he is been having black stools for the last 3 days increasing generalized weakness and wifebelow more pale. Patient has never had a colonoscopy. Never had GI bleeding in the past and he does not take any blood thinners. Patient says he is otherwise healthy and does not take any other medications. Patient states there is no pain in his abdomen he does not have any pain anywhere else. He has not noticed any blood while wiping just the black stools. Otherwise no complaints including fevers, chills, nausea, vomiting, headache, blurry vision, neck pain, back pain, chest pain, shortness of breath, abdominal pain, changes in bowel movements, pain with urination, pain or tingling in any arms or legs or generalized weakness. - Related Data Home Medications Medication Instructions Recorded Confirmed Gabapentin [Neurontin] 300 mg PO TID 05/08/17 05/08/17 HydrOXYzine Pamoate [Vistaril] 50 mg PO HS PRN 05/08/17 05/08/17 Meloxicam [Mobic] 15 mg PO DAILY 05/08/17 05/08/17 Sertraline [Zoloft] 200 mg PO DAILY 05/08/17 05/08/17 Tizanidine HCl 4 mg PO BID PRN 05/08/17 05/08/17 Previous Rx's Medication Instructions Recorded Docusate [Colace] 100 mg PO DAILY #30 capsule 05/13/17 Famotidine [Pepcid] 40 mg PO BID #60 tab 05/13/17 Lansoprazole [Prevacid] 30 mg PO QAM #30 capsule. 05/13/17 Ondansetron ODT [Zofran ODT] 4 mg SL Q4HR #30 tab.rapdis 05/13/17 Naproxen [Naprosyn] 500 mg PO BID PRN #10 tablet 07/26/18 Allergies Allergy/AdvReac Type Severity Reaction Status Date / Time No Known Allergies Allergy Verified 10/04/18 19:02 All systems ED: reviewed and negative except as stated. Review of Systems: As Per HPI Past Medical History - Past Medical History Attestation: Yes The following information was validated with the patient. Source: patient Medical history: Reports: no medical history, other Surgical history: Reports: appendectomy, orthopedic, other Psychiatric history: Reports: anxiety, depression - Social History Smoking Status: Never smoker Smokeless Tobacco Status: No Alcohol use: Reports: rarely Drug use: Reports: none Physical Exam - General Limitations: no limitations General appearance: alert, in no apparent distress - Head Head exam: atraumatic - Eye Eye exam: Present: normal appearance, PERRL, EOMI - ENT ENT exam: normal exam, normal oropharynx, mucous membranes moist - Neck Neck exam: Present: normal inspection, full ROM, trachea midline - Chest Chest inspection: Present: normal inspection, symmetric chest wall rise - Respiratory Respiratory exam: Present: normal lung sounds bilaterally - Cardiovascular Cardiovascular exam: Present: regular rate, normal rhythm, normal heart sounds - Abdominal Exam Abdominal exam: Present: soft, Non-Tender, normal bowel sounds. 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 Absent: tenderness, pedal edema - Back Exam Back exam: Present: normal inspection, full ROM. 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 We will start patient on Protonix. Patient disposition is pending lab results. - Reevaluation(s) Reevaluation #1: Patient's CBC came back at 9.9 Hemoccult was positive. Due to patient being above 8 and we will not transfuse the patient at this time. Patient will be admitted for further evaluation. Time: 19:58 Vital Signs Temperature 98.4 F 10/04/18 19:01 Pulse Rate 102 10/04/18 19:01 Respiratory Rate 18 10/04/18 19:01 Blood Pressure 124/75 10/04/18 19:01 O2 Sat by Pulse Oximetry 96 10/04/18 19:01 Temperature 98.4 F 10/04/18 19:33 Pulse Rate 85 10/04/18 20:13 Respiratory Rate 20 10/04/18 20:13 Blood Pressure 104/57 10/04/18 20:13 O2 Sat by Pulse Oximetry 98 10/04/18 20:13 Oxygen Delivery Oxygen Delivery Room Air GI Bleed - [facility] Narrative Medical decision making narrative: 63-year-old male presented emergency Department black stools. Hemoccult was p ositive for blood. Hemoglobin was stable at 6.6. This is dropped from his one a couple months ago which was 13. Patient is most likely actively bleeding but is not unstable at this time. We will get a second IV so is 2 large bore IVs. Patient needs to be admitted for further evaluation as he has a lower GI bleed. We did start patient on Protonix. Patient did get 1 L IV fluids. I spoke with the hospitalist Dr. Morgan who agreed to admit the patient. Patient is stable at this time. - Medical Records Medical records reviewed: Yes I reviewed the patient's medical records. - Lab Data Lab results reviewed: Yes I reviewed the patient's lab results. Result diagrams: 10/04/18 19:30 10/04/18 19:30 Lab Results 10/04/18 10/04/18 10/04/18 Range/Units 19:20 19:30 19:30 WBC 8.6 (4.3-11.1) K/mcL RBC 3.99 L (4.19-5.50) M/mcL Hgb 9.9 L (12.9-16.9) g/dL Hct 31.6 L (37.5-50.1) % MCV 79.2 L (83.0-100.0) fL MCH 24.8 L (28.0-33.3) pg MCHC 31.3 L (31.6-35.5) g/dL RDW 15.2 H (11.5-14.5) % Plt Count 215 (140-400) K/mcL MPV 10.3 (9.4-12.4) fL Immature Gran % 0.4 (0-4) % Seg Neutrophils % 67.0 % Lymphocytes % 21.6 % Monocytes % 5.6 % Eosinophils % 4.6 % Basophils % 0.8 % Neutrophils # 5.8 (1.6-8.9) K/mcL Lymphocytes # 1.9 (0.6-4.6) K/mcL Monocytes # 0.5 (0.0-1.3) K/mcL Eosinophils # 0.4 (0.0-0.6) K/mcL Basophils # 0.1 (0.0-0.2) K/mcL Sodium 138 (136-145) mEq/L Potassium 3.8 (3.5-5.1) mEq/L Chloride 104 (98-107) mEq/L Carbon Dioxide 26 (23-29) mEq/L BUN 34 H (8-23) mg/dL Creatinine 0.97 (0.70-1.30) mg/dL Est GFR ( Amer) > 60 (> 60) Est GFR (Non-Af Amer) > 60 (> 60) BUN/Creatinine Ratio 35 H (6-26) Glucose 149 H (70-105) mg/dL Calculated Osmolality 296 (280-300) Calcium 9.1 (8.6-10.3) mg/dL Stool Occult Bld Scrn Positive A (Negative) Blood Type Antibody Screen 10/04/18 Range/Units 19:30 WBC (4.3-11.1) K/mcL RBC (4.19-5.50) M/mcL Hgb (12.9-16.9) g/dL Hct (37.5-50.1) % MCV (83.0-100.0) fL MCH (28.0-33.3) pg MCHC (31.6-35.5) g/dL RDW (11.5-14.5) % Plt Count (140-400) K/mcL MPV (9.4-12.4) fL Immature Gran % (0-4) % Seg Neutrophils % % Lymphocytes % % Monocytes % % Eosinophils % % Basophils % % Neutrophils # (1.6-8.9) K/mcL Lymphocytes # (0.6-4.6) K/mcL Monocytes # (0.0-1.3) K/mcL Eosinophils # (0.0-0.6) K/mcL Basophils # (0.0-0.2) K/mcL Sodium (136-145) mEq/L Potassium (3.5-5.1) mEq/L Chloride (98-107) mEq/L Carbon Dioxide (23-29) mEq/L BUN (8-23) mg/dL Creatinine (0.70-1.30) mg/dL Est GFR ( Amer) (> 60) Est GFR (Non-Af Amer) (> 60) BUN/Creatinine Ratio (6-26) Glucose (70-105) mg/dL Calculated Osmolality (280-300) Calcium (8.6-10.3) mg/dL Stool Occult Bld Scrn (Negative) Blood Type O NEGATIVE Antibody Screen NEGATIVE - Radiology Data Radiology results reviewed: Yes I reviewed the patient's radiology results. - EKG Data EKG attestation: Yes I reviewed and interpreted this EKG. EKG results narrative: EKG done at 1933 review myself and the attending shows sinus rhythm at a rate of 96, UT interval 360, QRS 105, QTC 433. There is no acute ST changes no acute T-wave changes no other signs of ischemia. No WPW/Brugada/HOCM. No heart block, hypertrophy, heart strain. No old EKG to compare with.
[2018-10-04 20:02] LABS: BUN/Creatinine Ratio 35 (6-26); Blood Urea Nitrogen 34 mg/dL (8-23); Calcium 9.1 mg/dL (8.6-10.3); Carbon Dioxide 26 mEq/L (23-29); Chloride 104 mEq/L (98-107); Glucose 149 mg/dL (70-105); Osmolality,Calculated 296 (280-300); Potassium 3.8 mEq/L (3.5-5.1); Sodium 138 mEq/L (136-145); eGFR For Non-African Americans > 60 (> 60)
--- NOTE | 2018-10-04 21:09 | Internal Med History&Physical ---
<MalMark Urbano - Last Filed: 10/05/18 02:40> Date of Encounter: 10/05/18 Time of Encounter: 21:09 Internal Medicine - H&P: HPI Chief complaint: Black Stools Admitted From: Home Plans for Post Hospital Care: Home History of present illness: Mr. River is a 63 year old male DM2, and left AKA. He presented to the ED earlier today complaining of bark loose stools for the past 3 days. He states he has been feeling increasingly fatigued for approximately the past 2-3 months with chills, and increased shortness of breath. However 3 days ago he noticed loose dark black stools with some epigastric pain, nausea, and 1 episode of bilious emesis. He denies any recent illnesses, fever, chest pain, increased c ough, or increased sputum production. Denies any hematochezia or hematemesis. Denies any urinary symptoms. States he has never had a colonoscopy before. Denies any hx of GERD. States he does smoke 2ppd, but only drinks alcohol 1-2 times per month. He does take Tylenol 650mg at most BID, every 3-4 days for chronic pain, but states he takes it with food. Past Med Surg Social Fam HX - Past Medical History Medical history: no medical history, other Psychiatric history: anxiety, depression - Past Surgical History Surgical History: appendectomy, orthopedic, other Additional surgical history: Left AKA - Social History Smoking Status: Never smoker Smokeless Tobacco Status: No Alcohol use: rarely Drug use: none - Family History Son Family Member Ethnicity: Non- Living Status: Still Living Hx Family Cardiac Disorders: No Hx Family Respiratory Disorders: No Hx Family Cancer: No Hx Family GI Disorders: No Hx Family Endocrine Disorder: No Hx Family Neuromuscular Disorders: No Hx Family Neurologic Disorders: No Hx Family HEENT Disorders: No Hx Family Autoimmune Disorders: No Internal Medicine - H&P: Meds Gabapentin [Neurontin] 300 mg PO TID 05/08/17 [History] HydrOXYzine Pamoate [Vistaril] 50 mg PO HS PRN 05/08/17 [History] Meloxicam [Mobic] 15 mg PO DAILY 05/08/17 [History] Sertraline [Zoloft] 200 mg PO DAILY 05/08/17 [History] Tizanidine HCl 4 mg PO TID PRN 05/08/17 [History] Lansoprazole [Prevacid] 30 mg PO QAM #30 capsule. 05/13/17 [Rx] Naproxen [Naprosyn] 500 mg PO BID PRN #10 tablet 07/26/18 [Rx] Doxazosin [Cardura] 1 mg PO DAILY 10/04/18 [History] Metformin HCl 1,000 mg PO BID 10/04/18 [History] Pravastatin Sodium [Pravachol] 20 mg PO DAILY 10/04/18 [History] Allergy/AdvReac Type Severity Reaction Status Date / Time No Known Allergies Allergy Verified 10/04/18 19:02 All Systems PM: A 10-system review of systems was performed and is negative for pertinent findings except as documented above in the HPI. - Constitutional Constitutional: chills, fatigue, no fever(s), no night sweats, no weight gain, no weight loss - EENT Eyes: no blurry vision, no change in vision, no photophobia Ears: no decreased hearing, no tinnitus Nose, mouth and throat: no nasal congestion, no sinus pain, no sinus pressure - Cardiovascular Cardiovascular ROS IM: dyspnea, dyspnea on exertion, lightheadedness, no chest pain, no diaphoresis, no edema, no palpitations, no syncope - Respiratory Respiratory: dyspnea, dyspnea on exertion, no cough, no hemoptysis, no wheezing, no chest congestion, no excessive phlegm production - Gastrointestinal Gastrointestinal: abdominal pain, loose stools, melena, nausea, vomiting, no coffee ground emesis, no constipation, no diarrhea, no dyspepsia, no hematemesis, no hematochezia - Musculoskeletal Musculoskeletal ROS IM: arthralgias, myalgias, no neck pain, no numbness, no tingling - Integumentary Integumentary IM: no new lesions, no unusual bruising, no jaundice - Neurological Neurological ROS: dizziness, frequent falls, vertigo, weakness, no burning sensations, no headache(s), no numbness, no tingling - Endocrine Endocrine IM: no polydipsia, no polyphagia, no polyuria - Hematologic/Lymphatic Hematologic/Lymphatic: no easy bleeding, no easy bruising - Constitutional Vitals: Temp Pulse Resp BP Pulse Ox 98.4 F 85 20 104/57 98 10/04/18 19:33 10/04/18 20:13 10/04/18 20:13 10/04/18 20:13 10/04/18 20:13 General appearance: Present: mild distress, A&O X 3, obese, answers questions appropriately Exam: General: obese male in mild distress Head: normocephalic and atraumatic Eyes: PERRL, EOMI, sclera anicteric, conjunctiva pink Neck: supple, trachea midline Lungs: CTA bilaterally. non-labored breathing. no wheezes, rales, or rhonchi Heart: RRR +S1 +S2. no murmurs, clicks, or rubs GI: abdomen soft, mildly TTP of epigastric and RUQ. non-distended. normoactive Extremities: warm, peripheral pulses palpable and symmetrical. AKA of left leg. no edema or cyanosis Neuro: A&Ox3. no focal deficits. no speech difficulty or abnormality. Skin: warm, dry, intact, pale Internal Med - H&P Results - Labs CBC & Chem 7: 10/04/18 19:30 10/04/18 19:30 Labs: Short CBC 10/04/18 Range/Units 19:30 WBC 8.6 (4.3-11.1) K/mcL Hgb 9.9 L (12.9-16.9) g/dL Hct 31.6 L (37.5-50.1) % Plt Count 215 (140-400) K/mcL Neutrophils # 5.8 (1.6-8.9) K/mcL BMP 10/04/18 19:30 Sodium 138 Potassium 3.8 Chloride 104 Carbon Dioxide 26 BUN 34 H Creatinine 0.97 Glucose 149 H Calcium 9.1 - Assessment and plan (1) Unilateral AKA Current Visit: Yes Status: Chronic Assessment and plan: Due to traumatic injury. Stable (2) Obesity (BMI 30-39.9) Current Visit: Yes Status: Chronic Assessment and plan: Chronic issue (3) Tobacco abuse Current Visit: Yes Status: Chronic Assessment and plan: Smokes 2ppd Spent >10 minutes discussing the importance of cessation and treatment alternative States he has no interest in cessation Nicotine patch 21mg during admission (4) DVT prophylaxis Current Visit: Yes Status: Acute Assessment and plan: EPCDs no chemical prophylaxis with acute bleeding at this time (5) Gastrointestinal hemorrhage Current Visit: Yes Status: Acute Assessment and plan: Melena for 3 days duration Guiac positive stool Hgb decreased at 9.9 Consult GI for endoscopy NPO Protonix BID Zofran for nausea Continue to monitor H&H and transfuse as needed Qualifiers: GI bleed type/associated pathology: melena Qualified Code(s): K92.1 - Melena - Time Spent With Patient Total time spent is greater than 50% in coordination of care (as documented) at patient's floor/unit and/or counseling patient: <Horace Morgan - Last Filed: 10/05/18 04:23> Date of Encounter: 10/05/18 Time of Encounter: 04:16 - Constitutional Constitutional: fatigue, weakness - Cardiovascular Cardiovascular ROS IM: dyspnea, no chest pain - Respiratory Respiratory: no chest congestion, no excessive phlegm production, no change in phlegm color - Gastrointestinal Gastrointestinal: abdominal pain, melena, no hematemesis, no hematochezia - Constitutional Vitals: Temp Pulse Resp BP Pulse Ox 98.5 F 96 16 150/80 93 10/05/18 03:33 10/05/18 03:33 10/05/18 03:33 10/05/18 03:33 10/05/18 03:33 General appearance: Present: cooperative, A&O X 3, pleasant, answers questions appropriately - Eye Eye exam: Present: EOMI, PERRL. Absent: scleral icterus Pupils: Present: normal accommodation - ENT ENT exam: Present: mucous membranes dry, normal oropharynx - Respiratory Respiratory exam: Present: CTAB. Absent: chest wall tenderness, rales, rhonchi, wheezes - Cardiovascular Cardiovascular exam: Present: distant heart sounds, RRR, +S1, +S2. Absent: diastolic murmur, systolic murmur - GI/Abdominal GI/Abdominal exam: Present: normal bowel sounds, soft, tenderness (mild epigastric pain). Absent: hepatomegaly, mass, splenomegaly - Extremities Exam Extremities exam: Present: warm, radial pulses palpable and symmetrical. Absent: calf tenderness, pedal edema, tenderness Additional comments: Left AKA - Neurological Exam Neurological exam: Present: alert, CN II-XII intact, oriented X3, no focal deficits - Skin Skin exam: Present: dry, intact, warm Internal Med - H&P Results - Labs CBC & Chem 7: 10/04/18 19:30 10/04/18 19:30 Labs: Short CBC 10/04/18 Range/Units 19:30 WBC 8.6 (4.3-11.1) K/mcL Hgb 9.9 L (12.9-16.9) g/dL Hct 31.6 L (37.5-50.1) % Plt Count 215 (140-400) K/mcL Neutrophils # 5.8 (1.6-8.9) K/mcL BMP 10/04/18 19:30 Sodium 138 Potassium 3.8 Chloride 104 Carbon Dioxide 26 BUN 34 H Creatinine 0.97 Glucose 149 H Calcium 9.1 - Assessment and plan (1) Unilateral AKA Current Visit: Yes Status: Chronic (2) Obesity (BMI 30-39.9) Current Visit: Yes Status: Chronic (3) DVT prophylaxis Current Visit: Yes Status: Acute (4) Tobacco abuse Current Visit: Yes Status: Chronic (5) Gastrointestinal hemorrhage Current Visit: Yes Status: Acute Qualifiers: GI bleed type/associated pathology: melena Qualified Code(s): K92.1 - Melena - Time Spent With Patient Total time spent is greater than 50% in coordination of care (as documented) at patient's floor/unit and/or counseling patient: - Attending Attestation I discussed the patient [place], past medical history, review of systems, lab data, and exam findings with Dr. Resendez. I then saw and examined patient independently. I reviewed his old records and current labs. Patient presents with several week history of melena, symptomatic anemia, and now has Hemoccult- positive stools. He dropped about 4 g hemoglobin since last CBC here about 2 1/2 months ago. I reviewed his medications and note that he takes meloxicam on a daily basis and PRN Naprosyn as well. He denies any alcohol abuse or excessive caffeine use. I am concerned about gastric and/or duodenal ulcer with acute versus subacute bleeding. He warrants upper endoscopy and likely lower endoscopy given that he has never had a colonoscopy in the past. We will keep him nothing by mouth for now and consult GI. I did ask the ER to place 2 large- bore IVs in case he starts having significant hemodynamic instability. Pre sently, however, he appears to be stable hemodynamically. We will trend his hemoglobins and transfuse as necessary. I discussed the plan with the patient at length and he voiced understanding and agreement. Other than my comments above and noted exam findings, I agree with Dr. Resendez's assessment and plan.
[2018-10-04] MEDS ORDERED: Ondansetron 4 MG/2 ML VIAL IVP PRN (21:46)
[2018-10-04] MEDS ORDERED: Naloxone 0.4 MG/ML INJ IVP PRN (21:46)
[2018-10-04 21:49] LABS: Activated Partial Thrombo Time 30.9 Seconds (26.0-36.0)
[2018-10-04] MEDS ORDERED: D5% in Water 1,000 ML IVC PRN (21:52)
[2018-10-04] MEDS ORDERED: Dextrose Gel 15 GM/37.5 ML TUBE PO PRN ×2 (21:52)
[2018-10-04] MEDS ORDERED: *HR* Dextrose 50 % in Water (Syg) 50 ML SYRINGE IVP PRN (21:52)
[2018-10-04 21:59] LABS: INR 1.2; Prothrombin Time 13.2 Seconds (9.4-12.1)
[2018-10-04 22:07] LABS: Estimated Average Glucose 126 mg/dl
[2018-10-05] MEDS: Insulin LISPRO 300 UNITS/3 ML VIAL SQ SCH ×6 (00:03→21:00)
[2018-10-05 04:19] LABS: Basophils # 0.1 K/mcL (0.0-0.2); Basophils % 0.9 %; Eosinophils # 0.4 K/mcL (0.0-0.6); Eosinophils % 5.4 %; Hematocrit 28.6 % (37.5-50.1); Hemoglobin 8.9 g/dL (12.9-16.9); Immature Granulocytes % 0.5 % (0-4); Lymphocytes # 2.5 K/mcL (0.6-4.6); Lymphocytes % 33.2 %; Mean Corpuscular HGB Conc 31.1 g/dL (31.6-35.5); Mean Corpuscular Hemoglobin 24.7 pg (28.0-33.3); Mean Corpuscular Volume 79.4 fL (83.0-100.0); Monocytes # 0.3 K/mcL (0.0-1.3); Monocytes % 4.6 %; Neutrophils # 4.1 K/mcL (1.6-8.9); Platelet Count 212 K/mcL (140-400); Red Cell Distribution Width 15.5 % (11.5-14.5); Segmented Neutrophils % 55.4 %
[2018-10-05 04:39] LABS: BUN/Creatinine Ratio 31 (6-26); Blood Urea Nitrogen 26 mg/dL (8-23); Calcium 8.5 mg/dL (8.6-10.3); Carbon Dioxide 28 mEq/L (23-29); Chloride 106 mEq/L (98-107); Glucose 112 mg/dL (70-105); Magnesium 1.5 mg/dL (1.6-2.6); Osmolality,Calculated 290 (280-300); Potassium 3.8 mEq/L (3.5-5.1); Sodium 137 mEq/L (136-145); eGFR For Non-African Americans > 60 (> 60)
--- NOTE | 2018-10-05 07:43 | Internal Med Progress Note ---
Hospitalist Progress Note - Encounter Date of Encounter: 10/05/18 Time of Encounter: 07:40 - Exam Vitals: Temp Pulse Resp BP Pulse Ox 99.2 F 100 20 90/51 92 10/05/18 06:54 10/05/18 06:54 10/05/18 06:54 10/05/18 06:54 10/05/18 06:54 Exam: General: obese male in mild distress Head: normocephalic and atraumatic Eyes: PERRL, EOMI, sclera anicteric, conjunctiva pink Neck: supple, trachea midline Lungs: CTA bilaterally. non-labored breathing. no wheezes, rales, or rhonchi Heart: RRR +S1 +S2. no murmurs, clicks, or rubs GI: abdomen soft, mildly TTP of epigastric and RUQ. non-distended. normoactive Extremities: warm, peripheral pulses palpable and symmetrical. AKA of left leg. no edema or cyanosis Neuro: A&Ox3. no focal deficits. no speech difficulty or abnormality. Skin: warm, dry, intact, pale - Assessment and Plan (1) Gastrointestinal hemorrhage Current Visit: Yes Status: Acute Assessment and Plan: Melena for 3 days duration with Guiac positive stool Endoscopy done by GI and showed large ulcer. continue pronix drip for 72 hrs Monitor CBC (2) Unilateral AKA Current Visit: Yes Status: Chronic Assessment and Plan: Due to traumatic injury. Stable (3) Obesity (BMI 30-39.9) Current Visit: Yes Status: Chronic Assessment and Plan: Chronic issue. Diet and weight loss (4) Tobacco abuse Current Visit: Yes Status: Chronic Assessment and Plan: Smokes 2ppd Spent >10 minutes discussing the importance of cessation and treatment alternative States he has no interest in cessation Nicotine patch 21mg during admission (5) DVT prophylaxis Current Visit: Yes Status: Acute Assessment and Plan: EPCDs no chemical prophylaxis with acute bleeding at this time - Time Spent with Patient Total time spent is greater than 50% in coordination of care (as documented) at patient's floor/unit and/or counseling patient: Internal Medicine: Result - Labs CBC & Chem 7: 10/05/18 11:53 10/05/18 03:31 Labs: Short CBC 10/04/18 10/05/18 Range/Units 19:30 03:31 WBC 8.6 7.4 (4.3-11.1) K/mcL Hgb 9.9 L 8.9 L (12.9-16.9) g/dL Hct 31.6 L 28.6 L (37.5-50.1) % Plt Count 215 212 (140-400) K/mcL Neutrophils # 5.8 4.1 (1.6-8.9) K/mcL BMP 10/04/18 10/05/18 19:30 03:31 Sodium 138 137 Potassium 3.8 3.8 Chloride 104 106 Carbon Dioxide 26 28 BUN 34 H 26 H Creatinine 0.97 0.83 Glucose 149 H 112 H Calcium 9.1 8.5 L - ABG Interpretation ABG results: PT/INR, D-dimer PT 13.2 Seconds (9.4-12.1) H 10/04/18 19:30 Consult Discharge Plan - Plan Referrals: Ajay,Lalo Milner MD [Primary Care Provider] - (1) Gastrointestinal hemorrhage Qualifiers: GI bleed type/associated pathology: melena Qualified Code(s): K92.1 - Melena
[2018-10-05] MEDS ORDERED: Pantoprazole 40 MG VIAL IVP SCH (08:00)
[2018-10-05] MEDS: 0.9 % Sodium Chloride 1,000 ML IVC SCH ×2 (09:02→19:33)
[2018-10-05] MEDS: Nicotine 21 MG PATCH.TD24 TD SCH (09:02)
[2018-10-05] MEDS ORDERED: *HR* FentaNYL (PF) 100 MCG/2 ML VIAL ONE (09:08)
[2018-10-05] MEDS ORDERED: *HR* Midazolam HCl 5 MG/5 ML VIAL IVP ONE (09:08)
[2018-10-05] MEDS ORDERED: Simethicone 40 MG/0.6 ML MLS IR ONE (09:18)
[2018-10-05] MEDS ORDERED: Tetracaine/Benzocaine/Butamben 1 SPRAY AEROSOL MM ONE (09:18)
--- NOTE | 2018-10-05 09:19 | Pre-Sedation Evaluation ---
Pre-sedation evaluation - Pre-sedation checklist Date of procedure: 10/05/18 Recent Vitals: Last Vital Signs Temp 99.2 F 10/05/18 06:54 Pulse 100 10/05/18 06:54 Resp 20 10/05/18 06:54 BP 90/51 10/05/18 06:54 Pulse Ox 92 10/05/18 06:54 ASA Classification *see protocol: CLASS III-Severe systemic disease Plan of Care: Pt appropriate candidate for procedure/moderate/conscious sedation, Risks/benefits of procedure/sedation discussed w/ patient/family
[2018-10-05] MEDS: *HR* FentaNYL (PF) 100 MCG/2 ML VIAL IVP ONE ×2 (09:29→10:23)
[2018-10-05] MEDS: *HR* Midazolam HCl 5 MG/5 ML VIAL IVP ONE ×2 (09:29→10:24)
--- NOTE | 2018-10-05 09:50 | Electrocardiograph Report ---
[address] [address] Test Date: 2018-10-04 Pat Name: Derick River Department: 104 Room: 2A32 Gender: M Relations Director: AMADOU : 1955 Requested By: Rakesh Bledsoe Order Number: [id number] Reading MD: Bernei García Measurements Intervals [place] Rate: 96 P: 141 VT: 360 QRS: -34 QRSD: 105 T: 79 QT: 380 QTc: 433 Interpretive Statements [employer] LIMITS INTERPRETATION Electronically Signed On 10-05-2018 9:49:14 EST by Bernie García
[2018-10-05] MEDS ORDERED: Pantoprazole 80 MG in 0.9 % Sodium Chloride 50 ML IVC ONE (10:00)
[2018-10-05] MEDS: Pantoprazole 40 MG in 0.9 % Sodium Chloride Mini Bag 100 ML IVC SCH ×3 (10:21→19:42)
[2018-10-05 12:11] LABS: Basophils # 0.1 K/mcL (0.0-0.2); Basophils % 0.8 %; Eosinophils # 0.3 K/mcL (0.0-0.6); Eosinophils % 4.1 %; Hematocrit 26.6 % (37.5-50.1); Hemoglobin 8.4 g/dL (12.9-16.9); Immature Granulocytes % 0.3 % (0-4); Lymphocytes # 1.3 K/mcL (0.6-4.6); Lymphocytes % 19.8 %; Mean Corpuscular HGB Conc 31.6 g/dL (31.6-35.5); Mean Corpuscular Hemoglobin 24.9 pg (28.0-33.3); Mean Corpuscular Volume 78.7 fL (83.0-100.0); Mean Platelet Volume 10.8 fL (9.4-12.4); Monocytes # 0.3 K/mcL (0.0-1.3); Monocytes % 4.2 %; Neutrophils # 4.5 K/mcL (1.6-8.9); Platelet Count 207 K/mcL (140-400); Red Blood Count 3.38 M/mcL (4.19-5.50); Red Cell Distribution Width 15.2 % (11.5-14.5); Segmented Neutrophils % 70.8 %
--- NOTE | 2018-10-05 12:20 | Gastroenterology Consult Note ---
<Andrew Hunter - Last Filed: 10/05/18 12:18> Date of Encounter: 10/05/18 Time of Encounter: 11:25 - Assessment and plan (1) Abdominal pain Current Visit: No Status: Acute Assessment and plan: EGD completed today which showed large ulcer. Continue Protonix drip for total of 72 hours, then change to PO PPI. Follow up in GI office in 4 weeks. Qualifiers: Abdominal location: left upper quadrant Qualified Code(s): R10.12 - Left upper quadrant pain (2) Gastrointestinal hemorrhage Current Visit: Yes Status: Acute Assessment and plan: Secondary to gastric ulcer. Continue Protonix drip for total of 72 hours, then change to oral PPI. Patient educated regarding lifestyle modifications including: (1) avoidance of foods that may precipitate reflux (eg, coffee, alcohol, chocolate, fatty foods). (2) avoidance of acidic foods that may precipitate heartburn (eg, citrus, carbonated drinks, spicy foods). (3) adoption of behaviors that may reduce esophageal acid exposure (see weight loss, smoking cessation, raising the head of the bed, and avoiding recumbency for 2-3 hours after meals). Qualifiers: GI bleed type/associated pathology: melena Qualified Code(s): K92.1 - Melena - Time Spent With Patient Total time spent is greater than 50% in coordination of care (as documented) at patient's floor/unit and/or counseling patient: GI History of Present Illness - Data of Consult Patient: new to practice Consult date: 10/05/18 Requesting Physician: Horace Morgan MD - Consult Narrative Reason for consult: GI Bleed History of present illness: Mr. River is a 63 year old male with PMHx of DM2 and left AKA who presented to the ED with c/o dark stools for the past few days. He reports shortness of breath and epigastric pain for the past "few months". He denies fever, chills, chest pain, hematochezia, or hematemesis. He takes Meloxicam and Naproxen for arthritis, but is not taking a PPI. Hgb on admission 9.9 and today Hgb 8.9 with MCV 79.4. Fecal occult blood test was positive. Procedures: None NSAIDs: Naproxen, Meloxicam Anticoagulation: None Past Med Surg Social Fam HX - Past Medical History Medical history: no medical history, other Psychiatric history: anxiety, depression - Past Surgical History Surgical History: appendectomy, orthopedic, other Additional surgical history: Left AKA - Social History Smoking Status: Never smoker Smokeless Tobacco Status: No Alcohol use: rarely Drug use: none - Family History Son Family Member Ethnicity: Non- Living Status: Still Living Hx Family Cardiac Disorders: No Hx Family Respiratory Disorders: No Hx Family Cancer: No Hx Family GI Disorders: No Hx Family Endocrine Disorder: No Hx Family Neuromuscular Disorders: No Hx Family Neurologic Disorders: No Hx Family HEENT Disorders: No Hx Family Autoimmune Disorders: No - Gastrointestinal Gastrointestinal: Present: as per HPI - Constitutional Constitutional: as per HPI - EENT Eyes: as per HPI Ears: Present: as per HPI Nose, mouth and throat: Present: as per HPI - Cardiovascular Cardiovascular ROS: Present: as per HPI - Respiratory Respiratory IM: Present: as per HPI - Genitourinary Genitourinary: Absent: change in color, Urinary frequency - Neurological ROS Neurological GI: Present: as per HPI - Hematologic/Lymphatic Hematologic/Lymphatic pediatric: Present: as per HPI - Musculoskeletal Musculoskeletal ROS GI: Present: as per HPI - Integumentary Integumentary GI: Present: as per HPI - Psychiatric ROS Psychiatric GI: Present: as per HPI - Endocrine Endocrine IM: Present: as per HPI - Constitutional Vitals: Temp Pulse Resp BP Pulse Ox 98.0 F 71 18 117/70 95 10/05/18 12:05 10/05/18 12:05 10/05/18 12:05 10/05/18 12:05 10/05/18 12:05 General appearance: Present: cooperative, A&O X 3, no acute distress, answers questions appropriately - Head Head exam: Present: atraumatic, normocephalic - Eye Eye exam: Present: normal appearance, sclera anicteric - ENT ENT exam: Present: mucous membranes dry - Neck Neck exam general surgery: Present: normal inspection, trachea midline - Respiratory Respiratory exam: Present: decreased breath sounds, CTAB - Cardiovascular Cardiovascular exam: Present: RRR, +S1, +S2 - GI/Abdominal GI/Abdominal exam: Present: soft, tenderness (epigastric), no peritoneal signs. Absent: distended, firm, guarding - Rectal Rectal exam: Present: deferred - Extremities Exam Extremities exam: Present: warm Additional comments: Left AKA - Neurological Exam Neurological exam: Present: no focal deficits - Psychiatric Psychiatric exam: Present: normal affect, normal mood - Skin Skin exam: Present: dry, intact, normal color, warm Results - Labs CBC & Chem 7: 10/05/18 11:53 10/05/18 03:31 Labs: Last Result Calcium 8.5 mg/dL (8.6-10.3) L 10/05/18 03:31 Entire Visit Hgb 8.4 g/dL (12.9-16.9) L 10/05/18 11:53 Hct 26.6 % (37.5-50.1) L 10/05/18 11:53 PT 13.2 Seconds (9.4-12.1) H 10/04/18 19:30 - ABG ABG results: PT/INR, D-dimer PT 13.2 Seconds (9.4-12.1) H 10/04/18 19:30 Consult Discharge Plan - Plan Referrals: [facility] [place],Lalo Milner MD [Primary Care Provider] - <Kristine Almanza - Last Filed: 10/05/18 20:27> Date of Encounter: 10/05/18 Time of Encounter: 10:00 - Time Spent With Patient Total time spent is greater than 50% in coordination of care (as documented) at patient's floor/unit and/or counseling patient: GI History of Present Illness - Data of Consult Requesting Physician: Horace Morgan MD - Consult Narrative History of present illness: Mr. River is a 63 year old male - Constitutional Vitals: Temp Pulse Resp BP Pulse Ox 98.1 F 75 18 104/49 95 10/05/18 19:47 10/05/18 19:47 10/05/18 19:47 10/05/18 19:47 10/05/18 19:47 Results - Labs CBC & Chem 7: 10/05/18 11:53 10/05/18 03:31 Labs: Last Result Calcium 8.5 mg/dL (8.6-10.3) L 10/05/18 03:31 Entire Visit Hgb 8.4 g/dL (12.9-16.9) L 10/05/18 11:53 Hct 26.6 % (37.5-50.1) L 10/05/18 11:53 PT 13.2 Seconds (9.4-12.1) H 10/04/18 19:30 - ABG ABG results: PT/INR, D-dimer PT 13.2 Seconds (9.4-12.1) H 10/04/18 19:30 - Attending Attestation I have personally performed a face to face evaluation on this patient. I have reviewed and agree with the care plan. History and Exam by me shows: Pt seen. Pt with melana but no abd pain. O/E AAO, abd soft A; pt with actively bleeding Duodenal ulcer s/p EGD with cauterization. Rec: NPO today, PPI infusion, clear liquid from am
[2018-10-05] MEDS: Acetaminophen 325 MG TABLET PO PRN (13:11)
[2018-10-05] MEDS: traMADol 50 MG TABLET PO PRN (19:38)
[2018-10-05 21:08] LABS: Basophils # 0.1 K/mcL (0.0-0.2); Basophils % 1.2 %; Eosinophils # 0.4 K/mcL (0.0-0.6); Eosinophils % 5.8 %; Hematocrit 27.7 % (37.5-50.1); Hemoglobin 8.6 g/dL (12.9-16.9); Immature Granulocytes % 0.4 % (0-4); Lymphocytes # 1.9 K/mcL (0.6-4.6); Lymphocytes % 28.1 %; Mean Corpuscular Hemoglobin 24.5 pg (28.0-33.3); Mean Corpuscular Volume 78.9 fL (83.0-100.0); Mean Platelet Volume 10.4 fL (9.4-12.4); Monocytes # 0.4 K/mcL (0.0-1.3); Monocytes % 5.2 %; Platelet Count 205 K/mcL (140-400); Red Blood Count 3.51 M/mcL (4.19-5.50); Red Cell Distribution Width 15.4 % (11.5-14.5); Segmented Neutrophils % 59.3 %
[2018-10-06] MEDS: Acetaminophen 325 MG TABLET PO PRN (00:53)
[2018-10-06] MEDS: Pantoprazole 40 MG in 0.9 % Sodium Chloride Mini Bag 100 ML IVC SCH ×5 (01:46→23:16)
[2018-10-06] MEDS: 0.9 % Sodium Chloride 1,000 ML IVC SCH ×3 (01:47→18:00)
[2018-10-06 04:06] LABS: Basophils # 0.1 K/mcL (0.0-0.2); Basophils % 0.9 %; Eosinophils # 0.4 K/mcL (0.0-0.6); Eosinophils % 5.6 %; Hematocrit 25.8 % (37.5-50.1); Hemoglobin 8.1 g/dL (12.9-16.9); Immature Granulocytes % 0.3 % (0-4); Lymphocytes # 1.7 K/mcL (0.6-4.6); Lymphocytes % 26.9 %; Mean Corpuscular HGB Conc 31.4 g/dL (31.6-35.5); Mean Corpuscular Hemoglobin 24.6 pg (28.0-33.3); Mean Corpuscular Volume 78.4 fL (83.0-100.0); Mean Platelet Volume 10.8 fL (9.4-12.4); Monocytes # 0.3 K/mcL (0.0-1.3); Monocytes % 5.1 %; Neutrophils # 3.9 K/mcL (1.6-8.9); Platelet Count 206 K/mcL (140-400); Red Blood Count 3.29 M/mcL (4.19-5.50); Red Cell Distribution Width 15.3 % (11.5-14.5); Segmented Neutrophils % 61.2 %
[2018-10-06 04:30] LABS: BUN/Creatinine Ratio 18 (6-26); Blood Urea Nitrogen 14 mg/dL (8-23); Carbon Dioxide 24 mEq/L (23-29); Chloride 109 mEq/L (98-107); Glucose 113 mg/dL (70-105); Magnesium 1.9 mg/dL (1.6-2.6); Osmolality,Calculated 289 (280-300); Phosphorous 2.4 mg/dL (2.7-4.5); Potassium 3.9 mEq/L (3.5-5.1); Sodium 139 mEq/L (136-145); eGFR For Non-African Americans > 60 (> 60)
[2018-10-06] MEDS: traMADol 50 MG TABLET PO PRN ×2 (05:03→23:17)
--- NOTE | 2018-10-06 08:08 | Internal Med Progress Note ---
Hospitalist Progress Note - Encounter Date of Encounter: 10/06/18 Time of Encounter: 08:00 - Exam Vitals: Temp Pulse Resp BP Pulse Ox 98.3 F 68 16 134/54 92 10/06/18 06:44 10/06/18 06:44 10/06/18 06:44 10/06/18 06:44 10/06/18 06:44 Exam: General: obese male in mild distress Head: normocephalic and atraumatic Eyes: PERRL, EOMI, sclera anicteric, conjunctiva pink Neck: supple, trachea midline Lungs: CTA bilaterally. non-labored breathing. no wheezes, rales, or rhonchi Heart: RRR +S1 +S2. no murmurs, clicks, or rubs GI: abdomen soft, mildly TTP of epigastric and RUQ. non-distended. normoactive Extremities: warm, peripheral pulses palpable and symmetrical. AKA of left leg. no edema or cyanosis Neuro: A&Ox3. no focal deficits. no speech difficulty or abnormality. Skin: warm, dry, intact, pale - Assessment and Plan (1) Gastrointestinal hemorrhage Current Visit: Yes Status: Acute Assessment and Plan: Acute upper GI bleed with Melena for 3 days duration Endoscopy done by GI and showed large ulcer. continue pronix drip for 72 hrs and plan to switch to BID Monitor CBC (2) Unilateral AKA Current Visit: Yes Status: Chronic Assessment and Plan: Due to traumatic injury. Stable (3) Obesity (BMI 30-39.9) Current Visit: Yes Status: Chronic Assessment and Plan: Chronic issue. Diet and weight loss (4) Tobacco abuse Current Visit: Yes Status: Chronic Assessment and Plan: Smokes 2ppd Spent >10 minutes discussing the importance of cessation and treatment alternative States he has no interest in cessation Nicotine patch 21mg during admission (5) Diabetes mellitus Current Visit: Yes Status: Acute Assessment and Plan: Continue insulin and monitor fingersticks (6) DVT prophylaxis Current Visit: Yes Status: Acute Assessment and Plan: EPCDs no chemical prophylaxis with acute bleeding at this time - Time Spent with Patient Total time spent is greater than 50% in coordination of care (as documented) at patient's floor/unit and/or counseling patient: Internal Medicine: Result - Labs CBC & Chem 7: 10/06/18 03:34 10/06/18 03:34 Labs: Short CBC 10/05/18 10/05/18 10/06/18 Range/Units 11:53 20:50 03:34 WBC 6.4 6.8 6.4 (4.3-11.1) K/mcL Hgb 8.4 L 8.6 L 8.1 L (12.9-16.9) g/dL Hct 26.6 L 27.7 L 25.8 L (37.5-50.1) % Plt Count 207 205 206 (140-400) K/mcL Neutrophils # 4.5 4.0 3.9 (1.6-8.9) K/mcL BMP 10/06/18 03:34 Sodium 139 Potassium 3.9 Chloride 109 H Carbon Dioxide 24 BUN 14 Creatinine 0.77 Glucose 113 H Calcium 8.0 L - ABG Interpretation ABG results: PT/INR, D-dimer PT 13.2 Seconds (9.4-12.1) H 10/04/18 19:30 Consult Discharge Plan - Plan Referrals: Uccodi,Lalo Milner MD [Primary Care Provider] - 10/13/18 2:00 pm (Please follow up as schedule...) (1) Gastrointestinal hemorrhage Qualifiers: GI bleed type/associated pathology: melena Qualified Code(s): K92.1 - Melena
[2018-10-06] MEDS ORDERED: Acetaminophen 325 MG TABLET PO PRN (08:10)
[2018-10-06] MEDS: Insulin LISPRO 300 UNITS/3 ML VIAL SQ SCH ×4 (09:04→21:20)
[2018-10-06] MEDS: Nicotine 21 MG PATCH.TD24 TD SCH (09:34)
[2018-10-06] MEDS ORDERED: hydrOXYzine pamoate 25 MG CAPSULE PO PRN (13:04)
[2018-10-06] MEDS ORDERED: tiZANidine 4 MG TABLET PO PRN (13:04)
[2018-10-06] MEDS: Gabapentin 300 MG CAPSULE PO SCH ×2 (16:04→21:10)
[2018-10-06] MEDS: traZODone 50 MG TABLET PO SCH (21:10)
[2018-10-07] MEDS: 0.9 % Sodium Chloride 1,000 ML IVC SCH ×3 (03:01→19:05)
[2018-10-07] MEDS: Pantoprazole 40 MG in 0.9 % Sodium Chloride Mini Bag 100 ML IVC SCH ×4 (04:22→20:35)
[2018-10-07 04:46] LABS: Basophils % 0.6 %; Eosinophils # 0.3 K/mcL (0.0-0.6); Eosinophils % 6.6 %; Hematocrit 24.1 % (37.5-50.1); Hemoglobin 7.4 g/dL (12.9-16.9); Immature Granulocytes % 0.2 % (0-4); Lymphocytes # 1.5 K/mcL (0.6-4.6); Lymphocytes % 28.3 %; Mean Corpuscular HGB Conc 30.7 g/dL (31.6-35.5); Mean Corpuscular Hemoglobin 24.2 pg (28.0-33.3); Mean Corpuscular Volume 78.8 fL (83.0-100.0); Mean Platelet Volume 10.5 fL (9.4-12.4); Monocytes # 0.3 K/mcL (0.0-1.3); Monocytes % 6.3 %; Platelet Count 197 K/mcL (140-400); Red Blood Count 3.06 M/mcL (4.19-5.50); Red Cell Distribution Width 15.6 % (11.5-14.5)
[2018-10-07 05:03] LABS: BUN/Creatinine Ratio 9 (6-26); Blood Urea Nitrogen 7 mg/dL (8-23); Carbon Dioxide 27 mEq/L (23-29); Chloride 111 mEq/L (98-107); Glucose 117 mg/dL (70-105); Magnesium 1.6 mg/dL (1.6-2.6); Osmolality,Calculated 291 (280-300); Phosphorous 2.4 mg/dL (2.7-4.5); Potassium 3.6 mEq/L (3.5-5.1); Sodium 141 mEq/L (136-145); eGFR For Non-African Americans > 60 (> 60)
--- NOTE | 2018-10-07 07:49 | Internal Med Progress Note ---
Hospitalist Progress Note - Encounter Date of Encounter: 10/07/18 Time of Encounter: 09:00 - Exam Vitals: Temp Pulse Resp BP Pulse Ox 98.4 F 70 16 127/71 97 10/07/18 04:28 10/07/18 04:28 10/07/18 04:28 10/07/18 04:28 10/07/18 04:28 Exam: General: obese male in mild distress Head: normocephalic and atraumatic Eyes: PERRL, EOMI, sclera anicteric, conjunctiva pink Neck: supple, trachea midline Lungs: CTA bilaterally. non-labored breathing. no wheezes, rales, or rhonchi Heart: RRR +S1 +S2. no murmurs, clicks, or rubs GI: abdomen soft, mildly TTP of epigastric and RUQ. non-distended. normoactive Extremities: warm, peripheral pulses palpable and symmetrical. AKA of left leg. no edema or cyanosis Neuro: A&Ox3. no focal deficits. no speech difficulty or abnormality. Skin: warm, dry, intact, pale - Assessment and Plan (1) Gastrointestinal hemorrhage Current Visit: Yes Status: Acute Assessment and Plan: Acute upper GI bleed with Melena for 3 days duration Endoscopy done by GI and showed large ulcer. continue pronix drip for 72 hrs and plan to switch to BID Monitor CBC. Protonix drip to run until monday 10/08 Will transfuse 1 unit of pRBC today due to anemia with acute blood loss (2) Unilateral AKA Current Visit: Yes Status: Chronic Assessment and Plan: Due to traumatic injury. Stable (3) Obesity (BMI 30-39.9) Current Visit: Yes Status: Chronic Assessment and Plan: Chronic issue. Diet and weight loss (4) Tobacco abuse Current Visit: Yes Status: Chronic Assessment and Plan: Smokes 2ppd Spent >10 minutes discussing the importance of cessation and treatment alternative States he has no interest in cessation Nicotine patch 21mg during admission (5) Diabetes mellitus Current Visit: Yes Status: Acute Assessment and Plan: Continue insulin and monitor fingersticks (6) DVT prophylaxis Current Visit: Yes Status: Acute Assessment and Plan: EPCDs no chemical prophylaxis with acute bleeding at this time - Time Spent with Patient Total time spent is greater than 50% in coordination of care (as documented) at patient's floor/unit and/or counseling patient: Internal Medicine: Result - Labs CBC & Chem 7: 10/07/18 04:16 10/07/18 04:16 Labs: Short CBC 10/07/18 Range/Units 04:16 WBC 5.1 (4.3-11.1) K/mcL Hgb 7.4 L (12.9-16.9) g/dL Hct 24.1 L (37.5-50.1) % Plt Count 197 (140-400) K/mcL Neutrophils # 3.0 (1.6-8.9) K/mcL BMP 10/07/18 04:16 Sodium 141 Potassium 3.6 Chloride 111 H Carbon Dioxide 27 BUN 7 L Creatinine 0.76 Glucose 117 H Calcium 8.0 L - ABG Interpretation ABG results: PT/INR, D-dimer PT 13.2 Seconds (9.4-12.1) H 10/04/18 19:30 Consult Discharge Plan - Plan Referrals: Ajay,Lalo Milner MD [Primary Care Provider] - 10/13/18 2:00 pm (Please follow up as schedule...) (1) Gastrointestinal hemorrhage Qualifiers: GI bleed type/associated pathology: melena Qualified Code(s): K92.1 - Melena
[2018-10-07] MEDS: Insulin LISPRO 300 UNITS/3 ML VIAL SQ SCH ×4 (09:09→20:41)
[2018-10-07] MEDS: Nicotine 21 MG PATCH.TD24 TD SCH (09:10)
[2018-10-07] MEDS: Gabapentin 300 MG CAPSULE PO SCH ×3 (09:12→20:41)
[2018-10-07] MEDS ORDERED: 0.9 % Sodium Chloride 250 ML ONE (13:39)
[2018-10-07] MEDS: traMADol 50 MG TABLET PO PRN (20:40)
[2018-10-07] MEDS: traZODone 50 MG TABLET PO SCH (20:41)
[2018-10-08] MEDS: Pantoprazole 40 MG in 0.9 % Sodium Chloride Mini Bag 100 ML IVC SCH ×3 (01:50→08:00)
[2018-10-08] MEDS: 0.9 % Sodium Chloride 1,000 ML IVC SCH ×2 (03:18→07:54)
--- NOTE | 2018-10-08 07:36 | Discharge Summary ---
Orders not resulted at time of discharge: Pending orders 10/08/18 04:00 Basic Metabolic Panel AM 0400 CBC [Complete Blood Count] [HEME] AM 0400 Magnesium AM 0400 Phosphorous AM 0400 10/09/18 04:00 Basic Metabolic Panel AM 0400 CBC [Complete Blood Count] [HEME] AM 0400 Magnesium AM 0400 Phosphorous AM 0400 10/10/18 04:00 Basic Metabolic Panel AM 0400 CBC [Complete Blood Count] [HEME] AM 0400 Magnesium AM 0400 Phosphorous AM 0400 10/11/18 04:00 Basic Metabolic Panel AM 0400 CBC [Complete Blood Count] [HEME] AM 0400 Magnesium AM 0400 Phosphorous AM 0400 Date of Encounter: 10/08/18 Time of Encounter: 07:30 - Discharge Diagnosis (1) Gastrointestinal hemorrhage Priority: Primary Status: Acute Assessment and Plan: 63 year old male DM2, and left AKA. He presented to the ED earlier today complaining of bark loose stools for the past 3 days. He states he has been feeling increasingly fatigued for approximately the past 2-3 months with chills, and increased shortness of breath. However 3 days ago he noticed loose dark black stools with some epigastric pain, nausea, and 1 episode of bilious emesis. He denies any recent illnesses, fever, chest pain, increased cough, or incr eased sputum production. Denies any hematochezia or hematemesis. Denies any urinary symptoms. States he has never had a colonoscopy before. Denies any hx of GERD. States he does smoke 2ppd, but only drinks alcohol 1-2 times per month He was assessed with acute upper GI bleed with melena for 3 days duration. Endoscopy done by GI and showed large ulcer. He was placed on a protonix drip for 72 hrs and subsequently switched to BID PPI. He was transfused one unit of blood during his stay. He was discharged on omeprazole and sucralfate. 35minutes was spent discharging this patient Qualifiers: GI bleed type/associated pathology: melena Qualified Code(s): K92.1 - Melena (2) Unilateral AKA Priority: Primary Status: Chronic (3) Obesity (BMI 30-39.9) Priority: Primary Status: Chronic (4) Tobacco abuse Priority: Primary Status: Chronic (5) Diabetes mellitus Priority: Primary Status: Acute Qualifiers: Qualified Code(s): E11.9 - Type 2 diabetes mellitus without complications (6) DVT prophylaxis Priority: Primary Status: Acute Hospital course: Mr. River is a 63 year old male - Time Spent with Patient Total time spent providing and/or coordinating discharge services: - Discharge Medications Prescriptions: Omeprazole [PriLOSEC] 40 mg PO BIDAC #60 capsule. Sucralfate [Carafate] 1 gm PO QIDAC #120 tablet Home Medications: Gabapentin [Neurontin] 300 mg PO TID 05/08/17 [History] HydrOXYzine Pamoate [Vistaril] 50 mg PO HS PRN 05/08/17 [History] Sertraline [Zoloft] 200 mg PO DAILY 05/08/17 [History] Tizanidine HCl 4 mg PO TID PRN 05/08/17 [History] Doxazosin [Cardura] 1 mg PO DAILY 10/04/18 [History] Metformin HCl 1,000 mg PO BID 10/04/18 [History] Pravastatin Sodium [Pravachol] 20 mg PO DAILY 10/04/18 [History] Omeprazole [PriLOSEC] 40 mg PO BIDAC #60 capsule. 10/08/18 [Rx] Sucralfate [Carafate] 1 gm PO QIDAC #120 tablet 10/08/18 [Rx] Allergies/Adverse Reactions: Allergy/AdvReac Type Severity Reaction Status Date / Time No Known Allergies Allergy Verified 10/04/18 19:02 Date of admission: 10/06/18 12:05 Primary care physician: Lalo Moss MD Consults: 10/05/18 06:40 Consult to Gastroenterology [CONS] Routine Consulting Provider: [facility] Reason for Consult: GI Bleed Call Completed: No - Constitutional Vitals: Temp Pulse Resp BP Pulse Ox 98.7 F 80 17 130/74 98 10/08/18 03:53 10/08/18 03:53 10/08/18 03:53 10/08/18 03:53 10/08/18 03:53 General appearance: Present: cooperative, A&O X 3, pleasant, answers questions appropriately Exam: General: obese male in mild distress Head: normocephalic and atraumatic Eyes: PERRL, EOMI, sclera anicteric, conjunctiva pink Neck: supple, trachea midline Lungs: CTA bilaterally. non-labored breathing. no wheezes, rales, or rhonchi Heart: RRR +S1 +S2. no murmurs, clicks, or rubs GI: abdomen soft, mildly TTP of epigastric and RUQ. non-distended. normoactive Extremities: warm, peripheral pulses palpable and symmetrical. AKA of left leg. no edema or cyanosis Neuro: A&Ox3. no focal deficits. no speech difficulty or abnormality. Skin: warm, dry, intact, pale - Patient Status Disposition: Home, Self-Care Condition: Fair - Discharge Instructions Instructions: Peptic Ulcer (DC) Follow Up With: Lalo Moss MD [Primary Care Provider] - 10/13/18 2:00 pm (Please follow up as schedule...) Kristine Almanza MD [Partnered Physician] - (Follow up in 4 weeks. Call office Tuesday to schedule appointment.) - VTE Documentation of Mechanical Device: Intermittent pneumatic compression device
[2018-10-08 07:46] VITALS: BP 154/75
[2018-10-08 07:47] LABS: Basophils % 0.7 %; Eosinophils # 0.4 K/mcL (0.0-0.6); Eosinophils % 6.3 %; Hematocrit 26.4 % (37.5-50.1); Hemoglobin 8.3 g/dL (12.9-16.9); Immature Granulocytes % 0.5 % (0-4); Lymphocytes # 1.4 K/mcL (0.6-4.6); Lymphocytes % 24.2 %; Mean Corpuscular HGB Conc 31.4 g/dL (31.6-35.5); Mean Corpuscular Hemoglobin 24.9 pg (28.0-33.3); Mean Platelet Volume 10.5 fL (9.4-12.4); Monocytes # 0.4 K/mcL (0.0-1.3); Monocytes % 6.1 %; Neutrophils # 3.6 K/mcL (1.6-8.9); Platelet Count 225 K/mcL (140-400); Red Blood Count 3.34 M/mcL (4.19-5.50); Red Cell Distribution Width 15.7 % (11.5-14.5); Segmented Neutrophils % 62.2 %
[2018-10-08] MEDS: Nicotine 21 MG PATCH.TD24 TD SCH (07:50)
[2018-10-08] MEDS: Gabapentin 300 MG CAPSULE PO SCH (07:50)
[2018-10-08] MEDS: Insulin LISPRO 300 UNITS/3 ML VIAL SQ SCH (07:54)
[2018-10-08 08:06] LABS: BUN/Creatinine Ratio 9 (6-26); Blood Urea Nitrogen 7 mg/dL (8-23); Calcium 8.1 mg/dL (8.6-10.3); Carbon Dioxide 26 mEq/L (23-29); Chloride 110 mEq/L (98-107); Glucose 113 mg/dL (70-105); Magnesium 1.6 mg/dL (1.6-2.6); Osmolality,Calculated 291 (280-300); Phosphorous 3.2 mg/dL (2.7-4.5); Potassium 3.7 mEq/L (3.5-5.1); Sodium 141 mEq/L (136-145); eGFR For Non-African Americans > 60 (> 60)
== END 2018-10-08 11:15 | disposition home or self-care (01) | DRG 378 ==
LOC: 2ANU 18:53 → EMEROOARM 18:53 → 2ANU 21:40
PROVIDERS: ADMIT Pediatrics; ATTEND Pediatrics
PROC: ENDOEBX (2018-10-05 09:15)

== ENCOUNTER 2019-10-13 12:39 | Inpatient (IN) ==
[2019-10-13] MEDS ORDERED: cefTRIAXone 1,000 MG in Water for inj. (sterile) 10 ML IVP ONE (12:55)
[2019-10-13 13:29] LABS: Bilirubin,Urine Negative (Negative); Blood,Urine Negative (Negative); Clarity,Urine Cloudy (Clear); Color,Urine Yellow (Yellow); Glucose,Urine (UA) Normal (Normal); Ketones,Urine Negative (Negative); Leukocyte Esterase,Urine Large (Negative); Nitrite,Urine Negative (Negative); Protein,Urine Negative (Neg-Trace); Specific Gravity,Urine 1.019 (1.010-1.025); Urobilinogen,Urine Normal (Normal)
[2019-10-13 13:32] LABS: Bacteria,Urine None Seen per hpf (None-Few); Hyaline Casts,Urine None Seen per lpf (None-Few); Squamous Epithelial Cell,Urine Many per lpf (None-Few); WBC,Urine 30-50 per hpf (0-3)
[2019-10-13 13:35] LABS: Basophils # 0.1 K/mcL (0.0-0.2); Basophils % 1.1 %; Eosinophils # 0.4 K/mcL (0.0-0.6); Eosinophils % 5.3 %; Hematocrit 42.8 % (37.5-50.1); Hemoglobin 14.1 g/dL (12.9-16.9); Immature Granulocytes % 0.4 % (0-4); Lymphocytes # 2.1 K/mcL (0.6-4.6); Lymphocytes % 25.2 %; Mean Corpuscular HGB Conc 32.9 g/dL (31.6-35.5); Mean Corpuscular Hemoglobin 24.9 pg (28.0-33.3); Mean Corpuscular Volume 75.6 fL (83.0-100.0); Mean Platelet Volume 11.2 fL (9.4-12.4); Monocytes # 0.4 K/mcL (0.0-1.3); Monocytes % 4.5 %; Neutrophils # 5.3 K/mcL (1.6-8.9); Platelet Count 230 K/mcL (140-400); Red Blood Count 5.66 M/mcL (4.19-5.50); Red Cell Distribution Width 19.8 % (11.5-14.5); Segmented Neutrophils % 63.5 %; White Blood Count 8.3 K/mcL (4.3-11.1)
[2019-10-13 13:38] LABS: Amphetamine Screen,Urine Negative ng/mL (Cutoff=1000); Barbiturate Screen,Urine Negative ng/mL (Cutoff=200); Benzodiazepines Screen,Urine Negative ng/mL (Cutoff=200); Cannabinoid Screen,Urine Negative ng/mL (Cutoff = 50); Cocaine Screen,Urine Negative ng/mL (Cutoff= 300); Opiate Screen,Urine Negative ng/mL (Cutoff=300); Phencyclidine Screen,Urine Negative ng/mL (Cutoff=25)
[2019-10-13 13:45] LABS: RBC,Urine 0-3 per hpf (0-3)
[2019-10-13 13:49] LABS: Prothrombin Time 11.5 Seconds (9.4-12.1)
[2019-10-13 13:51] LABS: Alanine Aminotransferase 15 Units/L (7-52); Albumin 4.1 g/dL (3.5-5.7); Albumin/Globulin Ratio 1.8 (1.1-2.2); Alkaline Phosphatase 57 Units/L (34-104); Aspartate Amino Transferase 14 Units/L (13-39); BUN/Creatinine Ratio 16 (6-26); Bilirubin,Direct 0.1 mg/dL (0.0-0.2); Bilirubin,Indirect 0.5 mg/dL (0.0-1.0); Bilirubin,Total 0.6 mg/dL (0.3-1.0); Blood Urea Nitrogen 13 mg/dL (8-23); Calcium 9.6 mg/dL (8.6-10.3); Carbon Dioxide 27 mEq/L (23-29); Chloride 103 mEq/L (98-107); Ethanol < 10 mg/dL (Less than 10); Globulin 2.3 g/dL (2.4-3.5); Glucose 125 mg/dL (70-105); Osmolality,Calculated 286 (280-300); Potassium 4.2 mEq/L (3.5-5.1); Sodium 137 mEq/L (136-145); Total Protein 6.4 g/dL (6.4-8.9); eGFR For African Americans > 60 (> 60); eGFR For Non-African Americans > 60 (> 60)
[2019-10-13 13:52] LABS: Activated Partial Thrombo Time 33.6 Seconds (26.0-36.0)
[2019-10-13 13:53] LABS: Troponin I < 0.03 ng/mL (< 0.04)
[2019-10-13 15:29] LABS: VBG HCO3 29 mEq/L (21-27); VBG PCO2 46 mmHg (41-51); VBG PH 7.41 pH Units (7.32-7.42); VBG PO2 179 mmHg (25-50)
[2019-10-13] MEDS ORDERED: *HR* Promethazine 25 MG/ML VIAL IVP PRN (16:41)
[2019-10-13] MEDS ORDERED: tiZANidine 4 MG TABLET PO PRN (16:41)
[2019-10-13] MEDS ORDERED: Mag Hydrox/Al Hydrox/Simeth 30 ML UDC PO PRN (16:41)
[2019-10-13] MEDS ORDERED: Acetaminophen 325 MG TABLET PO PRN (16:41)
[2019-10-13] MEDS ORDERED: MOM Conc 10 ML UD.LIQ PO PRN (16:41)
[2019-10-13] MEDS ORDERED: Naloxone 0.4 MG/ML INJ IVP PRN (16:41)
[2019-10-13] MEDS ORDERED: Ondansetron 4 MG/2 ML VIAL IVP PRN (16:41)
[2019-10-13] MEDS ORDERED: Dextrose Gel 15 GM/37.5 ML TUBE PO PRN ×2 (16:43)
[2019-10-13] MEDS ORDERED: D5% in Water 1,000 ML IVC PRN (16:43)
[2019-10-13] MEDS ORDERED: *HR* Dextrose 50 % in Water (Syg) 50 ML SYRINGE IVP PRN (16:43)
[2019-10-13] MEDS: *HR* Heparin 5,000 UNIT/ML VIAL SQ SCH (17:14)
[2019-10-13] MEDS: Baclofen 10 MG TABLET PO SCH ×2 (17:14→21:20)
[2019-10-13] MEDS: Insulin LISPRO 300 UNITS/3 ML VIAL SQ SCH (20:45)
[2019-10-13] MEDS: Cholestyramine 4 GM POWD.PACK PO SCH (21:20)
[2019-10-14] MEDS: Haloperidol Lactate 5 MG/ML VIAL IVP PRN ×2 (04:23→12:24)
[2019-10-14] MEDS: *HR* Heparin 5,000 UNIT/ML VIAL SQ SCH ×2 (05:38→17:40)
[2019-10-14 07:21] LABS: Basophils # 0.1 K/mcL (0.0-0.2); Basophils % 0.8 %; Eosinophils # 0.3 K/mcL (0.0-0.6); Eosinophils % 3.8 %; Hematocrit 43.3 % (37.5-50.1); Hemoglobin 14.3 g/dL (12.9-16.9); Immature Granulocytes % 0.2 % (0-4); Lymphocytes # 2.5 K/mcL (0.6-4.6); Lymphocytes % 29.6 %; Mean Corpuscular Hemoglobin 24.7 pg (28.0-33.3); Mean Corpuscular Volume 74.8 fL (83.0-100.0); Mean Platelet Volume 11.5 fL (9.4-12.4); Monocytes # 0.6 K/mcL (0.0-1.3); Monocytes % 6.7 %; Platelet Count 244 K/mcL (140-400); Red Blood Count 5.79 M/mcL (4.19-5.50); Red Cell Distribution Width 19.9 % (11.5-14.5); Segmented Neutrophils % 58.9 %; White Blood Count 8.5 K/mcL (4.3-11.1)
[2019-10-14 07:44] LABS: BUN/Creatinine Ratio 18 (6-26); Blood Urea Nitrogen 16 mg/dL (8-23); Calcium 9.5 mg/dL (8.6-10.3); Carbon Dioxide 24 mEq/L (23-29); Chloride 100 mEq/L (98-107); Glucose 117 mg/dL (70-105); Osmolality,Calculated 292 (280-300); Sodium 140 mEq/L (136-145); eGFR For African Americans > 60 (> 60); eGFR For Non-African Americans > 60 (> 60)
[2019-10-14 07:45] LABS: % Iron Saturation 39 % (20-55); Iron 123 mcg/dL (65-175); Transferrin 225 mg/dL (203-362)
[2019-10-14 07:59] LABS: Ferritin 154 ng/mL (20-250)
[2019-10-14 08:05] LABS: Vitamin B12 172 pg/mL (250-1100)
[2019-10-14] MEDS: Insulin LISPRO 300 UNITS/3 ML VIAL SQ SCH ×4 (08:19→22:14)
[2019-10-14] MEDS: Vitamin B Complex/Vit C/Vit E 1 EACH TABLET PO SCH (09:51)
[2019-10-14] MEDS: Baclofen 10 MG TABLET PO SCH ×5 (09:51→22:14)
[2019-10-14] MEDS: Cholestyramine 4 GM POWD.PACK PO SCH ×2 (09:52→22:14)
[2019-10-14] MEDS ORDERED: Cyanocobalamin (B-12) 1,000 MCG/ML VIAL IM ONE (10:07)
[2019-10-14 11:30] LABS: Vitamin D 25 Hydroxy 19 ng/mL (30-80)
[2019-10-14] MEDS: cefTRIAXone 2,000 MG in Water for inj. (sterile) 20 ML IVPB SCH (17:39)
[2019-10-14] MEDS ORDERED: *HR* LORazepam 2 MG/ML VIAL ONE (18:02)
[2019-10-14] MEDS ORDERED: Haloperidol Lactate 5 MG/ML VIAL IM ONE (18:04)
[2019-10-14] MEDS ORDERED: Ziprasidone 10 MG in Water for inj. (sterile) 0.5 ML IM PRN (18:04)
[2019-10-14] MEDS ORDERED: *HR* LORazepam 2 MG/ML VIAL IVP ONE (18:04)
[2019-10-15] MEDS: Haloperidol Lactate 5 MG/ML VIAL IM PRN ×2 (00:04→04:21)
[2019-10-15] MEDS: *HR* LORazepam 2 MG/ML VIAL IVP PRN ×4 (00:18→18:51)
[2019-10-15] MEDS: *HR* Heparin 5,000 UNIT/ML VIAL SQ SCH ×2 (06:22→17:37)
[2019-10-15] MEDS ORDERED: Thiamine (B-1) 100 MG in 0.9 % Sodium Chloride 50 ML IVPB SCH (09:00)
[2019-10-15] MEDS: Insulin LISPRO 300 UNITS/3 ML VIAL SQ SCH ×4 (09:45→20:41)
[2019-10-15] MEDS: Baclofen 10 MG TABLET PO SCH ×3 (09:46→20:42)
[2019-10-15] MEDS: Cyanocobalamin (B-12) 1,000 MCG/ML VIAL IM SCH (09:46)
[2019-10-15] MEDS: Vitamin B Complex/Vit C/Vit E 1 EACH TABLET PO SCH (09:51)
[2019-10-15] MEDS: Cholecalciferol (D-3) 1,000 UNIT (25MCG) TABLET PO SCH (09:51)
[2019-10-15] MEDS: Cholestyramine 4 GM POWD.PACK PO SCH ×2 (10:37→20:42)
[2019-10-15] MEDS: cefTRIAXone 2,000 MG in Water for inj. (sterile) 20 ML IVPB SCH (11:47)
[2019-10-15] MEDS ORDERED: Vancomycin (wt based) 1,000 MG VIAL IVPB SCH (12:00)
[2019-10-15] MEDS ORDERED: THIAMINE IVPB ONE (13:10)
[2019-10-15] MEDS ORDERED: SODIUM CHLORIDE 0.9% IVPB ONE (13:10)
[2019-10-15] MEDS ORDERED: Cyanocobalamin (B-12) 1,000 MCG/ML VIAL IM ONE (14:58)
[2019-10-16] MEDS: *HR* Heparin 5,000 UNIT/ML VIAL SQ SCH ×2 (05:09→18:05)
[2019-10-16 06:11] LABS: Hematocrit 42.3 % (37.5-50.1); Hemoglobin 13.7 g/dL (12.9-16.9); Mean Corpuscular HGB Conc 32.4 g/dL (31.6-35.5); Mean Corpuscular Hemoglobin 25.2 pg (28.0-33.3); Mean Corpuscular Volume 77.9 fL (83.0-100.0); Mean Platelet Volume 11.2 fL (9.4-12.4); Platelet Count 207 K/mcL (140-400); Red Blood Count 5.43 M/mcL (4.19-5.50); White Blood Count 7.9 K/mcL (4.3-11.1)
[2019-10-16 06:33] LABS: BUN/Creatinine Ratio 15 (6-26); Blood Urea Nitrogen 13 mg/dL (8-23); Carbon Dioxide 25 mEq/L (23-29); Chloride 102 mEq/L (98-107); Glucose 109 mg/dL (70-105); Osmolality,Calculated 293 (280-300); Potassium 4.2 mEq/L (3.5-5.1); Sodium 141 mEq/L (136-145); eGFR For African Americans > 60 (> 60); eGFR For Non-African Americans > 60 (> 60)
[2019-10-16] MEDS: *HR* LORazepam 2 MG/ML VIAL IVP PRN (08:25)
[2019-10-16] MEDS: Vitamin B Complex/Vit C/Vit E 1 EACH TABLET PO SCH (08:26)
[2019-10-16] MEDS: Cholestyramine 4 GM POWD.PACK PO SCH ×2 (08:26→20:17)
[2019-10-16] MEDS: Baclofen 10 MG TABLET PO SCH ×3 (08:26→20:17)
[2019-10-16] MEDS: Cholecalciferol (D-3) 1,000 UNIT (25MCG) TABLET PO SCH (08:26)
[2019-10-16] MEDS: Cyanocobalamin (B-12) 1,000 MCG/ML VIAL IM SCH (08:27)
[2019-10-16] MEDS: Insulin LISPRO 300 UNITS/3 ML VIAL SQ SCH ×4 (09:00→20:14)
[2019-10-16] MEDS ORDERED: Thiamine (B-1) 500 MG in 0.9 % Sodium Chloride 50 ML IVPB SCH (09:00)
[2019-10-16] MEDS ORDERED: Haloperidol Lactate 5 MG/ML VIAL IVP PRN (10:01)
[2019-10-16] MEDS ORDERED: *HR* LORazepam 2 MG/ML VIAL IVP PRN (10:07)
[2019-10-16] MEDS ORDERED: Ziprasidone 10 MG in Water for inj. (sterile) 0.5 ML IM PRN (10:07)
[2019-10-16 10:49] LABS: Magnesium 1.7 mg/dL (1.6-2.6)
[2019-10-16] MEDS: cefTRIAXone 2,000 MG in Water for inj. (sterile) 20 ML IVPB SCH (14:35)
[2019-10-16] MEDS: Thiamine (B-1) 500 MG in 0.9 % Sodium Chloride 50 ML IVPB SCH ×2 (16:11→20:17)
[2019-10-17 04:30] LABS: Hematocrit 42.8 % (37.5-50.1); Hemoglobin 13.9 g/dL (12.9-16.9); Mean Corpuscular HGB Conc 32.5 g/dL (31.6-35.5); Mean Corpuscular Hemoglobin 25.4 pg (28.0-33.3); Mean Corpuscular Volume 78.2 fL (83.0-100.0); Mean Platelet Volume 11.3 fL (9.4-12.4); Platelet Count 203 K/mcL (140-400); Red Blood Count 5.47 M/mcL (4.19-5.50); Red Cell Distribution Width 19.6 % (11.5-14.5); White Blood Count 9.1 K/mcL (4.3-11.1)
[2019-10-17] MEDS: *HR* Heparin 5,000 UNIT/ML VIAL SQ SCH ×2 (04:58→19:59)
[2019-10-17 04:59] LABS: BUN/Creatinine Ratio 18 (6-26); Blood Urea Nitrogen 16 mg/dL (8-23); Calcium 9.5 mg/dL (8.6-10.3); Carbon Dioxide 24 mEq/L (23-29); Chloride 103 mEq/L (98-107); Glucose 125 mg/dL (70-105); Osmolality,Calculated 295 (280-300); Sodium 141 mEq/L (136-145); eGFR For African Americans > 60 (> 60); eGFR For Non-African Americans > 60 (> 60)
[2019-10-17] MEDS: Insulin LISPRO 300 UNITS/3 ML VIAL SQ SCH ×4 (07:56→21:05)
[2019-10-17] MEDS: Baclofen 10 MG TABLET PO SCH ×3 (09:00→20:06)
[2019-10-17] MEDS: Vitamin B Complex/Vit C/Vit E 1 EACH TABLET PO SCH (09:00)
[2019-10-17] MEDS: Cyanocobalamin (B-12) 1,000 MCG/ML VIAL IM SCH (09:00)
[2019-10-17] MEDS ORDERED: Thiamine (B-1) 500 MG in 0.9 % Sodium Chloride 50 ML IVPB SCH (09:00)
[2019-10-17] MEDS: Cholecalciferol (D-3) 1,000 UNIT (25MCG) TABLET PO SCH (09:01)
[2019-10-17] MEDS: Cholestyramine 4 GM POWD.PACK PO SCH ×2 (09:02→20:06)
[2019-10-17 10:17] LABS: ANA IgG by ELISA NONE DETECTED (None Detected)
[2019-10-17 10:23] LABS: Tissue Transglutaminase IgA 1 U/mL (0-3)
[2019-10-17] MEDS ORDERED: cefTRIAXone 2,000 MG in Water for inj. (sterile) 20 ML IVP SCH (13:00)
[2019-10-17] MEDS ORDERED: Thiamine (B-1) 100 MG TABLET PO PRN (16:28)
[2019-10-17] MEDS: Thiamine (B-1) 500 MG in 0.9 % Sodium Chloride 50 ML IVPB SCH (19:59)
[2019-10-18] MEDS: *HR* Heparin 5,000 UNIT/ML VIAL SQ SCH ×2 (05:40→15:41)
[2019-10-18 07:35] LABS: Alanine Aminotransferase 17 Units/L (7-52); Albumin 3.9 g/dL (3.5-5.7); Albumin/Globulin Ratio 1.9 (1.1-2.2); Alkaline Phosphatase 60 Units/L (34-104); Aspartate Amino Transferase 14 Units/L (13-39); BUN/Creatinine Ratio 14 (6-26); Bilirubin,Total 0.5 mg/dL (0.3-1.0); Blood Urea Nitrogen 11 mg/dL (8-23); Calcium 9.7 mg/dL (8.6-10.3); Carbon Dioxide 28 mEq/L (23-29); Chloride 102 mEq/L (98-107); Globulin 2.1 g/dL (2.4-3.5); Glucose 105 mg/dL (70-105); Osmolality,Calculated 292 (280-300); Sodium 141 mEq/L (136-145); eGFR For African Americans > 60 (> 60); eGFR For Non-African Americans > 60 (> 60)
[2019-10-18] MEDS: Insulin LISPRO 300 UNITS/3 ML VIAL SQ SCH ×4 (08:53→20:39)
[2019-10-18] MEDS ORDERED: Nicotine 21 MG PATCH.TD24 TD SCH (09:00)
[2019-10-18] MEDS: Vitamin B Complex/Vit C/Vit E 1 EACH TABLET PO SCH (09:06)
[2019-10-18] MEDS: Cholecalciferol (D-3) 1,000 UNIT (25MCG) TABLET PO SCH (09:08)
[2019-10-18] MEDS: Baclofen 10 MG TABLET PO SCH ×3 (09:09→20:39)
[2019-10-18] MEDS: Thiamine (B-1) 500 MG in 0.9 % Sodium Chloride 50 ML IVPB SCH (09:11)
[2019-10-18] MEDS: Cholestyramine 4 GM POWD.PACK PO SCH ×2 (09:18→20:39)
[2019-10-18] MEDS: Cyanocobalamin (B-12) 1,000 MCG/ML VIAL IM SCH (09:20)
[2019-10-18 09:43] LABS: Tissue Transglutaminase IgG 2 U/mL (0-5)
[2019-10-18] MEDS: Nicotine 14 MG PATCH.TD24 TD SCH (12:45)
[2019-10-18] MEDS ORDERED: Aminoglycoside Consult 1 EACH MC ONE ×2 (18:53)
[2019-10-19] MEDS: *HR* Heparin 5,000 UNIT/ML VIAL SQ SCH ×2 (05:48→15:52)
[2019-10-19 07:06] LABS: Hematocrit 42.2 % (37.5-50.1); Hemoglobin 13.8 g/dL (12.9-16.9); Mean Corpuscular HGB Conc 32.7 g/dL (31.6-35.5); Mean Corpuscular Hemoglobin 24.7 pg (28.0-33.3); Mean Corpuscular Volume 75.6 fL (83.0-100.0); Mean Platelet Volume 12.1 fL (9.4-12.4); Platelet Count 207 K/mcL (140-400); Red Blood Count 5.58 M/mcL (4.19-5.50); Red Cell Distribution Width 19.9 % (11.5-14.5); White Blood Count 6.9 K/mcL (4.3-11.1)
[2019-10-19] MEDS: Vitamin B Complex/Vit C/Vit E 1 EACH TABLET PO SCH (08:28)
[2019-10-19] MEDS: Baclofen 10 MG TABLET PO SCH ×2 (08:28→15:52)
[2019-10-19] MEDS: Cholecalciferol (D-3) 1,000 UNIT (25MCG) TABLET PO SCH (08:29)
[2019-10-19] MEDS: Nicotine 14 MG PATCH.TD24 TD SCH (08:30)
[2019-10-19] MEDS: Cholestyramine 4 GM POWD.PACK PO SCH (08:31)
[2019-10-19] MEDS: Insulin LISPRO 300 UNITS/3 ML VIAL SQ SCH ×3 (08:32→17:49)
[2019-10-19] MEDS ORDERED: Cyanocobalamin (B-12) 1,000 MCG TABLET PO SCH (09:00)
[2019-10-19] MEDS ORDERED: Thiamine (B-1) 100 MG TABLET PO SCH (09:00)
[2019-10-19 11:22] VITALS: BP 117/71
== END 2019-10-19 18:54 | disposition home or self-care (01) | DRG 641 ==
LOC: 3BNU 12:39 → EMEROOARM 12:39 → 3BNU 16:28
PROVIDERS: ADMIT Internal Medicine; ATTEND Internal Medicine